=== PATIENT | female | born 1960 | race Caucasian/White ===

== ENCOUNTER 2020-09-30 06:51 | Day surgery (SDC) | payer OTHER ==
[2020-09-24 14:50] VITALS: BMI 22.1
[~2020-09-30 06:51] MED LIST: LACTATED RINGERS 1,000 ML IV SCH; LIDOCAINE 1% (10MG/ML) FOR IV START INTRADERMA PRN
[2020-09-30 07:14] VITALS: TEMP 97.8
[2020-09-30] MEDS ORDERED: LACTATED RINGERS 1,000 ML IV ONE (07:14)
[2020-09-30 07:21] LABS: Glucose,Whole Blood 308 mg/dL (75-99)
[2020-09-30] MEDS ORDERED: INSULIN ASPART (NovoLOG) 100 UNIT/ML VIAL SQ ONE ×2 (07:28→08:45)
[2020-09-30] MEDS ORDERED: fentaNYL (PF) 50 MCG/ML 2 ML AMP ONE (07:33)
[2020-09-30] MEDS ORDERED: PROPOFOL 10 MG/ML 20 ML VIAL IV ONE (07:33)
[2020-09-30] MEDS ORDERED: LIDOCAINE 1% INJ 10MG/ML (20 ML MDV) ONE (07:33)
[2020-09-30] MEDS ORDERED: MIDAZOLAM 2 MG/2 ML VIAL ONE (07:33)
--- NOTE | 2020-09-30 08:21 | P.PCN ---
Date of Procedure: 09/30/20 Description of Procedure: Brief history: Patient is a pleasant 60-year-old female presenting for outpatient esophagogastroduodenoscopy and colonoscopy for evaluation of GERD and change in bowel habits. The patient reports a long-standing history of reflux disease. Currently on omeprazole daily she reports symptoms which are well controlled. She reports her last colonoscopy was approximately 10 years ago. No family history of colon cancer reported. Procedure performed: Esophagogastroduodenoscopy with biopsy Colonoscopy with polypectomy Preoperative diagnosis: GERD, change in bowel habits, unintentional weight loss, patient reports last colonoscopy 10 years ago at 50 Anesthesia: [facility] Procedure: After informed consent was obtained from the patient was brought into the endoscopy unit and IV sedation was administered by anesthesia under continuous monitoring. Initially upper endoscopy was done. The Olympus GF 190 video endoscope was inserted into the mouth and esophagus intubated without any difficulty and was gradually advanced into the stomach and duodenum and car efully examined. The bulb and second part of the duodenum appeared normal, with biopsies taken to rule out celiac sprue. The scope was then withdrawn into the stomach adequately insufflated with air and upon careful examination the antrum and body, cardia and fundus appeared normal, except for some mild punctate erythema in the body suggestive of mild gastritis with biopsies taken. The scope was then withdrawn into the esophagus. The GE junction was located at 38 cm to the incisors. It appeared regular with no erythema erosions or ulcerations, with biopsies taken of the lower esophagus. Rest of the esophagus appeared normal. Patient tolerated the procedure well. At this time the patient continued to remain sedation. Initial digital rectal examination was normal. Olympus CF 190 video colonoscope was then inserted into the rectum and gradually advanced to the cecum without any difficulty. Careful examination was performed as the scope was gradually being withdrawn. The prep was excellent. The cecum, ascending colon, transverse colon, descending colon, sigmoid colon and rectum appeared normal, but was somewhat redundant. A diminutive 1-2 mm transverse colon polyp was removed with cold forcep polypectomy. Retroflexion was performed in the rectum and no lesions were noted, and low-grade internal hemorrhoids were seen. Patient tolerated the procedure well. Impression: 1. Mild gastritis. Biopsies of the duodenum, antrum and body and lower esophagus. 2. Diminutive transverse colon polyp removed with cold forcep polypectomy. Low-grade internal hemorrhoids. Recommendations: Findings of this examination were discussed with the patient as well as her family. Okay to resume diet. Okay to resume medication. Await pathology from biopsies and polypectomy. Recommend repeat colonoscopy in 7 years for colon polyp pending pathology from polypectomy.
[2020-09-30 08:28] VITALS: RESP 16
[2020-09-30 08:34] LABS: Glucose,Whole Blood 298 mg/dL (75-99)
[2020-09-30 08:47] VITALS: BP 115/74; PULSE 71
== END 2020-09-30 09:32 | disposition home or self-care (01) ==
LOC: ORWHC2ENDO 06:51
PROVIDERS: ATTEND Internal Medicine
DX: K21.9 Gastro-esophageal reflux disease without esophagitis (principal); R19.4 Change in bowel habit; K64.8 Other hemorrhoids; K29.80 Duodenitis without bleeding; K29.50 Unspecified chronic gastritis without bleeding; K20.0 Eosinophilic esophagitis; Z72.0 Tobacco use; Z90.710 Acquired absence of both cervix and uterus; Z98.890 Other specified postprocedural states; Z79.4 Long term (current) use of insulin; Z79.899 Other long term (current) drug therapy; Z88.5 Allergy status to narcotic agent; Z88.0 Allergy status to penicillin; Z91.09 Other allergy status, other than to drugs and biological substances
CPT/HCPCS: 88305; 45380; 43239; J2250; J2001; J3010; J2704

== ENCOUNTER 2020-10-01 13:05 | Inpatient (IN) | payer OTHER ==
[2020-10-01] MEDS ORDERED: SODIUM CHLORIDE 0.9% 1,000 ML IV ONE (13:10)
[2020-10-01] MEDS ORDERED: HEPARIN SODIUM 1,000 UN/ML (10ML VL) IV ONE ×2 (13:10→13:47)
[2020-10-01] MEDS ORDERED: ATORVASTATIN 80 MG TAB PO STA (13:12)
[2020-10-01] MEDS: ASPIRIN 81 MG PO STA ×2 (13:24→13:25)
--- NOTE | 2020-10-01 13:24 | ED ---
General Adult HPI - General Stated complaint: STEMI Time Seen by Provider: 10/01/20 13:05 Source: patient, RN notes reviewed, old records reviewed - History of Present Illness Initial comments: This is a 60-year-old female who presents emergency department with past medical history significant for diabetes. Patient called EMS because of difficulty breathing not feeling well. When EMS arrived she was diaphoretic very nauseated and felt like she was vomited. Patient denied chest pain at any time. When EMS did EKG patient appeared to have inferior TN in the colostomy over the radial at which point time we called a STEMI in the emergency department. Patient was given Zofran in route states she feels considerably better and he has no nausea at this time. Patient still has no chest pain. Patient denies any headache pa tient denies any numbness weakness. Patient denies any lightheadedness. - Related Data Home Medications Medication Instructions Recorded Confirmed DULoxetine HCL [Cymbalta] 120 mg PO DAILY 09/24/20 09/24/20 INSULIN LISPRO (humaLOG) [humaLOG] 0 units SQ ACHS PRN 09/24/20 09/24/20 Insulin Degludec [Tresiba] 10 units SQ HS 09/24/20 09/24/20 Levothyroxine Sodium 2 tab PO DAILY 09/24/20 09/24/20 Omeprazole 80 mg PO DAILY 09/24/20 09/24/20 Simvastatin [Zocor] 20 mg PO HS 09/24/20 09/24/20 Allergies Allergy/AdvReac Type Severity Reaction Status Date / Time adhesive tape Allergy Rash/Hives Verified 10/01/20 13:20 codeine Allergy "feel like Verified 10/01/20 13:20 I'm speed" Penicillins Allergy Rash/Hives Verified 10/01/20 13:20 Review of Systems ROS Statement: Those systems with pertinent positive or pertinent negative responses have been documented in the HPI. ROS Other: All systems not noted in ROS Statement are negative. Past Medical History Past Medical History: Diabetes Mellitus, GERD/Reflux, Hyperlipidemia, Thyroid Disorder Additional Past Medical History / Comment(s): wt loss 30# in less than a year History of Any Multi-Drug Resistant Organisms: None Reported Past Surgical History: Section, Hysterectomy Additional Past Surgical History / Comment(s): C/S x2, pilonidal cyst Past Anesthesia/Blood Transfusion Reactions: No Reported Reaction Smoking Status: Current every day smoker General Exam - General Exam Comments Initial Comments: GENERAL: Patient is well-developed and well-nourished. Patient is nontoxic and well- hydrated and is in mild distress. ENT: Neck is soft and supple. No significant lymphadenopathy is noted. Oropharynx is clear. Moist mucous membranes. Neck has full range of motion without eliciting any pain. EYES: The sclera were anicteric and conjunctiva were pink and moist. Extraocular movements were intact and pupils were equal round and reactive to light. Eyelids were unremarkable. PULMONARY: Unlabored respirations. Good breath sounds bilaterally. No audible rales rhonchi or wheezing was noted. CARDIOVASCULAR: There is a regular rate and rhythm without any murmurs gallops or rubs. ABDOMEN: Soft and nontender with normal bowel sounds. SKIN: Skin is clear with no lesions or rashes and otherwise unremarkable. NEUROLOGIC: Patient is alert and oriented x3. Cranial nerves II through XII are grossly intact. Motor and sensory are also intact. Normal speech, volume and content. Symmetrical smile. MUSCULOSKELETAL: Normal extremities with adequate strength and full range of motion. 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 Patient's EKG shows ST segment elevation in inferior leads II, III, and F aVF as well as precordial lateral leads V5 and V6. Patient was started on heparin bolus of 4 000 even though she just had to walk normal and his gastric biopsies patient had aspirin in route patient was given a liter bolus of fluid. Patient was also given Lipitor 80. The nurse practitioner for cardiology was in the room and she took the patient to Sql Data Analyst. Chest x-ray showed no acute abnormality. I spoke with Dr. Berkowitz he agreed to admit the patient admitted the patient I wrote admitting orders. Critical Care Time Critical Care Time: Yes Total Critical Care Time: 35 Disposition Clinical Impression: ST elevation myocardial infarction (STEMI) Disposition: ADMITTED IP TO THIS HOSP Referrals: Molly Wallace MD [Primary Care Provider] - 1-2 days Time of Disposition: 13:23
[2020-10-01] MEDS ORDERED: fentaNYL (PF) 50 MCG/ML 2 ML AMP IVP ONE (13:25)
[2020-10-01] MEDS: MIDAZOLAM 2 MG/2 ML VIAL IVP ONE ×2 (13:25→13:55)
--- NOTE | 2020-10-01 13:26 | XR ---
EXAMINATION TYPE: XR chest 1V portable DATE OF EXAM: 10/01/2020 COMPARISON: NONE HISTORY: Pain TECHNIQUE: Single frontal view of the chest is obtained. FINDINGS: There is no focal air space opacity, pleural effusion, or pneumothorax seen. The cardiac silhouette size is within normal limits. The osseous structures are intact. Coarsened interstitium IMPRESSION: Correlate for bronchitis. Early venous congestion felt less likely. Chronic interstitial lung disease in the differential diagnosis, however, no prior exams available for comparison.
[2020-10-01] MEDS ORDERED: fentaNYL (PF) 50 MCG/ML 2 ML AMP ONE (13:27)
[2020-10-01 13:28] LABS: Anisocytosis Slight; Basophils % (A) 0 %; Eosinophils # (A) 0.1 k/uL (0-0.7); Eosinophils % (A) 1 %; HCT 41.3 % (34.0-46.0); HGB 13.2 gm/dL (11.4-16.0); Lymphocytes # (A) 3.1 k/uL (1.0-4.8); Lymphocytes % (A) 36 %; MCH 25.9 pg (25.0-35.0); Mean Platelet Volume 9.7; Monocytes # (A) 0.5 k/uL (0-1.0); Monocytes % (A) 6 %; Neutrophils # (A) 4.7 k/uL (1.3-7.7); Neutrophils % (A) 55 %; Platelet Count 347 k/uL (150-450); RBC 5.11 m/uL (3.80-5.40); RDW 16.4 % (11.5-15.5); WBC 8.7 k/uL (3.8-10.6)
[2020-10-01] MEDS ORDERED: LIDOCAINE 1% INJ 10MG/ML (20 ML MDV) SQ ONE (13:28)
[2020-10-01] MEDS ORDERED: IV FLUID CONTINUATION 1,000 ML IV ONE (13:33)
[2020-10-01] MEDS: LIDOCAINE 2% SYG (PF) 100 MG/5 ML IV ONE ×2 (13:43→13:55)
[2020-10-01 13:45] LABS: ALT 24 U/L (4-34); AST 31 U/L (14-36); African American GFR (CKD) >90 (>60 ml/min/1.73 sqM); Albumin 3.8 g/dL (3.5-5.0); Alkaline Phosphatase 118 U/L (38-126); Anion Gap 11 mmol/L; Blood Urea Nitrogen 10 mg/dL (7-17); Calcium 9.5 mg/dL (8.4-10.2); Carbon Dioxide 16 mmol/L (22-30); Chloride 107 mmol/L (98-107); Glucose 277 mg/dL (74-99); Magnesium 1.5 mg/dL (1.6-2.3); Non-African American GFR(CKD) >90 (>60 ml/min/1.73 sqM); Potassium 4.1 mmol/L (3.5-5.1); Sodium 134 mmol/L (137-145); Total Bilirubin 0.5 mg/dL (0.2-1.3); Total Protein 6.3 g/dL (6.3-8.2)
[2020-10-01 13:46] LABS: Partial Thromboplastin Time 21.9 sec (22.0-30.0); Prothrombin Time 10.6 sec (9.0-12.0)
--- NOTE | 2020-10-01 13:52 | P.CARDCATH ---
Date of Procedure: 10/01/20 Preoperative Diagnosis: Inferior wall myocardial infarction Postoperative Diagnosis: Critical lesion involving the distal circumflex. Diffuse disease involving the LAD and also RCA Procedure(s) Performed: Left heart catheterization without left ventriculography Description of Procedure: HISTORY: This is a 60-year-old female with history of sci-iafwlex-ywtugxiiv diabetes had a colonoscopy yesterday and biopsy of the polyp. Patient is presented to the hospital this time with complaints of nausea vomiting and sweating. Did not have any chest pain. EKG however showed ST elevation in inferior leads. She is advised to have for diagnosis CONSENT:I have discussed the risks, benefits and alternative therapies for the above-mentioned procedure and for both sedation/analgesia as well as necessary blood product administration, if indicated, as they pertain to this patient. The patient has indicated understanding and acceptance of the risks and procedures discussed. PROCEDURE: Patient was brought to the lab in a fasting state. Patient was given some IV sedation. The right groin is infiltrated with lidocaine and right femoral artery was entered using Seldinger technique. A 6-Belgian catheter was left in place and selective coronary arteriography and left ventriculography was performed. Patient tolerated the procedure well. No immediate complications were noted and patient went on to have stent placement by Dr. MONTSERRAT Jones Conscious Sedation: Versed 1mg Fentanyl 50 g Duration 14minutes HEMODYNAMICS: The aortic pressure is 160/80. Left ventricular end-diastolic pressure was not measured SELECTIVE CORONARY ARTERIOGRAPHY: LEFT MAIN: Normal length and patent THE LEFT ANTERIOR DESCENDING CORONARY ARTERY: . This is a moderate caliber vessel with diffuse disease with multiple areas of about 70% stenosis THE LEFT CIRCUMFLEX AND IS CORONARY ARTERY: . This is a good caliber vessel giving rise to good-sized OM branch. The first OM branch has about 6070% proximal stenosis. The distal circumflex has a 95% stenosis THE RIGHT CORONARY ARTERY: . Moderate caliber vessel with a diffuse disease with areas of 40-50% stenosis LEFT VENTRICULOGRAPHY: Not performed FINAL IMPRESSION: . Critical lesion involving the distal circumflex. Moderate to severe disease involving the LAD and multiple areas PLAN: And placement of the circumflex. Patient may need intervention of LAD in the future PROGNOSIS: Fair successful therapy
[2020-10-01] MEDS ORDERED: TIROFIBAN 12.5MG-0.9% NS PMX 250 ML BAG IV ONE ×2 (13:53)
[2020-10-01] MEDS ORDERED: TIROFIBAN 12.5MG-250ML NS 250 ML IV ONE (13:53)
[2020-10-01] MEDS ORDERED: NITROGLYCERIN 1000MCG/10ML SYRINGE INTRACORON ONE (13:59)
[2020-10-01] MEDS ORDERED: CLOPIDOGREL 75 MG TAB ONE (14:05)
--- NOTE | 2020-10-01 14:07 | P.CRDCN ---
History of Present Illness History of present illness: HISTORY OF PRESENTING ILLNESS This is a pleasant 60-year-old female past medical history significant for type I diabetes mellitus, dyslipidemia and chronic nicotine dependence. She denies prior history of coronary artery disease and does not follow in the office with a monorail hooker. She started feeling sick approximately 30 minutes ago. She had an acute onset of nausea, vomiting and diaphoresis that started at home. She called EMS. On their arrival an EKG showed ST elevations in the inferior leads and is in bigeminy. Repeat EKG in ER again showerd ST elevations in the inferior leads with persistent bigeminy. The ST elevations are difficult to discern given the frequent PVC's. There is no old for comparison. Chest xray revealed early venous congestion possible vs bronchitis with underlying interstitial lung disease. Laboratory data reviewed, WBC 8.7, hgb 13.2, platele ts 347, sodium 134, potassium 4.1, creatinine 0.61 and magnesium 1.5. Current daily cardiac medications include simvastatin 20 mg daily. REVIEW OF SYSTEMS At the time of my exam: CONSTITUTIONAL: Denies fever or chills. CARDIOVASCULAR: Denies chest pain, shortness of breath, orthopnea, PND or palpitations. RESPIRATORY: Denies cough. GASTROINTESTINAL: Complains of nausea and vomiting. Denies abdominal pain, diarrhea or constipation. MUSCULOSKELETAL: Denies myalgias. NEUROLOGIC: Denies numbness, tingling, headacbe or weakness. ENDOCRINE: Denies fatigue, weight change, polydipsia or polyurina. GENITOURINARY: Denies burning, hematuria or urgency with micturation. HEMATOLOGIC: Denies history of anemia or bleeding. PHYSICAL EXAMINATION Blood pressure 124/64 heart rate 62 afebrile and maintaining oxygen saturation on nasal cannula. CONSTITUTIONAL: Diaphoretic. HEENT: Head is normocephalic. Pupils are equal, round. Sclerae anicteric. Mucous membranes of the mouth are moist. No JVD. No carotid bruit. CHEST EXAMINATION: Lungs are clear to auscultation. No chest wall tenderness is noted on palpation or with deep breathing. HEART EXAMINATION: Regular rate and rhythm. S1, S2 heard. No murmurs, gallops or rub. ABDOMEN: Soft, nontender. Positive bowel sounds. EXTREMITIES: 2+ peripheral pulses, no lower extremity edema and no calf tenderness. NEUROLOGIC EXAMINATION: Patient is awake, alert and oriented x3. ASSESSMENT Inferior wall STEMI Bigeminy Dyslipidemia Diabetes mellitus Chronic nicotine dependence Recent colonoscopy secondary to unintentional weight loss PLAN Pt going to microbiological laboratory technician for [facility]. I have discussed the risks, benefits and alternative therapies for the above- mentioned procedure and for both sedation/analgesia as well as necessary blood product administration, if indicated, as they pertain to this patient. The patient has indicated understanding and acceptance of the risks and procedures discussed. Further recommendations to follow based on clinical course. Thank you kindly for this consultation. Nurse Practitioner note has been reviewed, I agree with a documented findings and plan of care. Patient was seen and examined. Past Medical History Past Medical History: Diabetes Mellitus, GERD/Reflux, Hyperlipidemia, Thyroid Disorder Additional Past Medical History / Comment(s): wt loss 30# in less than a year History of Any Multi-Drug Resistant Organisms: None Reported Past Surgical History: Section, Hysterectomy Additional Past Surgical History / Comment(s): C/S x2, pilonidal cyst Past Anesthesia/Blood Transfusion Reactions: No Reported Reaction Smoking Status: Current every day smoker Medications and Allergies Home Medications Medication Instructions Recorded Confirmed Type DULoxetine HCL [Cymbalta] 120 mg PO DAILY 09/24/20 09/24/20 History INSULIN LISPRO (humaLOG) [humaLOG] 0 units SQ ACHS PRN 09/24/20 09/24/20 History Insulin Degludec [Tresiba] 10 units SQ HS 09/24/20 09/24/20 History Levothyroxine Sodium 2 tab PO DAILY 09/24/20 09/24/20 History Omeprazole 80 mg PO DAILY 09/24/20 09/24/20 History Simvastatin [Zocor] 20 mg PO HS 09/24/20 09/24/20 History Allergies Allergy/AdvReac Type Severity Reaction Status Date / Time adhesive tape Allergy Rash/Hives Verified 10/01/20 13:20 codeine Allergy "feel like Verified 10/01/20 13:20 I'm speed" Penicillins Allergy Rash/Hives Verified 10/01/20 13:20 Physical Exam Vitals: Vital Signs Temp Pulse Pulse Resp BP Pulse Ox 10/01/20 13:07 97.3 F L 62 22 124/64 100 10/01/20 13:05 64 Intake and Output 09/30/20 10/01/20 10/01/20 22:59 06:59 14:59 Other: Weight 56.699 kg Results Current Medications Generic Name Dose Route Start Last Admin Trade Name Freq PRN Reason Stop Dose Admin Sodium Chloride 1,000 mls @ 999 mls/hr 10/01/20 13:10 Saline 0.9% IV 10/01/20 14:10 .Q1H1M ONE Intake and Output 09/30/20 10/01/20 10/01/20 22:59 06:59 14:59 Other: Weight 56.699 kg Patient Weight 10/02/20 06:59 Weight 56.699 kg
[2020-10-01] MEDS ORDERED: MAGNESIUM SULFATE-D5W PMX 1 GM in DEXTROSE/WATER 1 100ML.BAG IVPB STA (14:10)
[2020-10-01] MEDS ORDERED: CLOPIDOGREL 75 MG TAB PO ONE (14:10)
[2020-10-01] MEDS ORDERED: METOPROLOL TARTRATE 25 MG TAB PO STA (14:10)
[2020-10-01] MEDS ORDERED: IOPAMIDOL-370 100ML BTL INJ ONE ×2 (14:14→14:15)
[2020-10-01] MEDS ORDERED: METOPROLOL TARTRATE 50 MG TAB PO ONE (14:16)
[2020-10-01] MEDS ORDERED: NICOTINE 21MG/24HR PATCH TRANSDERM SCH (14:30)
[2020-10-01 14:53] LABS: Glucose,Whole Blood 261 mg/dL (75-99)
[2020-10-01] MEDS: INSULIN ASPART (NovoLOG) 100 UNIT/ML VIAL SQ SCH ×2 (15:53→21:26)
[2020-10-01] MEDS: MAGNESIUM SULFATE-D5W PMX 1 GM in DEXTROSE/WATER 1 100ML.BAG IVPB SCH ×2 (15:53→16:32)
[2020-10-01] MEDS: SODIUM CHLORIDE 0.9% 1,000 ML IV SCH (16:31)
[2020-10-01 16:56] LABS: Glucose,Whole Blood 260 mg/dL (75-99)
--- NOTE | 2020-10-01 19:01 | PTCA ---
PERCUTANEOUSTRANS CORORONARY ANGIOGRAPHY PTCA REPORT DATE OF SERVICE: 10/01/2020 PROCEDURE: PTCA and stenting of mid circumflex marginal coronary artery performed in the setting of an acute inferior ST-elevation ND with reperfusion accomplished within 45 minutes. PERFORMED BY: Dr. Dwaine Jones. Moderate conscious sedation time was 16 minutes. CLINICAL INFORMATION: Sanjana Farley is a 60-year-old lady with history of smoking, hypertension, diabetes, hyperlipidemia, came into the hospital with chest pain, inferior ST elevation and was seen by Dr. Serna who performed a cardiac cath from right femoral approach. Study revealed diffuse disease in all 3 vessels with a 99% mid circumflex stenosis, which was the culprit lesion. I performed LICENSED MIDWIFE in the same setting. LICENSED MIDWIFE PROCEDURE DETAILS: JL4 standard guide catheter of 6-Uzbek caliber was used to cannulate the left coronary artery. A run-through wire was used to cross the lesion. A 2.25 caliber, 12 mm Trek balloon was used to pre-dilate the lesion. An 8 mm long, 2.5 caliber Xience stent was deployed at 11 atmospheres. Patient did have mild chest pain, some runs of ventricular tachycardia. She had complete relief of chest pain and normalization of EKG. Excellent angiographic result was achieved without complication. The patient received heparin intravenously of about total of 5000 units. 4000 units were actually given in the ER and a 1000 units here in the cardiac cath rn. ACT was about 290. She was also given an Aggrastat drip as per protocol. The sheath was taken out and Angio-Seal device used to secure hemostasis. Results and the findings were discussed in detail with the patient's daughter and patient's . She was advised to quit smoking and work with risk factor modification. Patient was stable hemodynamically, was sent to the ICU in a stable condition. Excellent angiographic result was achieved without complication. MMODL / IJN: [id number] /
[2020-10-01 20:57] LABS: Glucose,Whole Blood 70 mg/dL (75-99)
[2020-10-01 20:59] LABS: Glucose,Whole Blood 71 mg/dL (75-99)
[2020-10-01] MEDS ORDERED: INSULIN DETEMIR (LEVEMIR) 100 UNIT/ML SYR SQ SCH (21:00)
[2020-10-01] MEDS: NICOTINE 21MG/24HR PATCH TRANSDERM SCH (21:53)
[2020-10-01] MEDS: LOSARTAN 25 MG TAB PO SCH (22:06)
[2020-10-01] MEDS: METOPROLOL TARTRATE 25 MG TAB PO SCH (22:07)
[2020-10-02 03:41] LABS: Hemoglobin A1C 9.6 % (4.0-6.0)
[2020-10-02 04:57] LABS: African American GFR (CKD) >90 (>60 ml/min/1.73 sqM); Anion Gap 5 mmol/L; Blood Urea Nitrogen 7 mg/dL (7-17); Calcium 8.4 mg/dL (8.4-10.2); Carbon Dioxide 23 mmol/L (22-30); Chloride 107 mmol/L (98-107); Glucose 283 mg/dL (74-99); Non-African American GFR(CKD) >90 (>60 ml/min/1.73 sqM); Potassium 5.2 mmol/L (3.5-5.1); Sodium 135 mmol/L (137-145)
[2020-10-02 05:39] LABS: Anisocytosis Slight; HCT 35.8 % (34.0-46.0); HGB 11.3 gm/dL (11.4-16.0); Hypochromasia Slight; MCH 26.2 pg (25.0-35.0); MCHC 31.5 g/dL (31.0-37.0); MCV 83.2 fL (80.0-100.0); Mean Platelet Volume 9.9; Platelet Count 328 k/uL (150-450); RDW 16.9 % (11.5-15.5); WBC 11.2 k/uL (3.8-10.6)
[2020-10-02 06:01] LABS: Band Neutrophils % 2 %; Eosinophils # (M) 0.11 k/uL (0-0.7); Lymphocytes # (M) 3.02 k/uL (1.0-4.8); Neutrophils % (M) 62 %; Nucleated Red Blood Cells 0 /100 WBC (0-0); Total Cells Counted 100
[2020-10-02 06:02] LABS: Anisocytosis (M) Present
[2020-10-02] MEDS: SODIUM CHLORIDE 0.9% 1,000 ML IV SCH ×2 (06:05→17:11)
[2020-10-02 06:54] LABS: Glucose,Whole Blood 327 mg/dL (75-99)
[2020-10-02] MEDS: PANTOPRAZOLE 40 MG TABLET PO SCH (07:09)
[2020-10-02] MEDS: LEVOTHYROXINE 112 MCG TAB PO SCH (07:09)
[2020-10-02] MEDS: INSULIN ASPART (NovoLOG) 100 UNIT/ML VIAL SQ SCH ×4 (07:09→21:26)
--- NOTE | 2020-10-02 07:45 | ECHOF ---
Referral Reason:stemi, going to ICU MEASUREMENTS -------- HEIGHT: 160.0 cm WEIGHT: 56.7 kg BP: 124/64 IVSd: 0.8 cm (0.6 - 1.1) LVIDd: 3.8 cm (3.9 - 5.3) LVPWd: 0.9 cm (0.6 - 1.1) IVSs: 1.0 cm LVIDs: 2.6 cm LVPWs: 1.4 cm LAESV Index (A-L): 20.11 ml/m Ao Diam: 2.1 cm (2.0 - 3.7) AV Cusp: 1.4 cm (1.5 - 2.6) MV EXCURSION: 18.505 mm (> 18.000) MV EF SLOPE: 123 mm/s (70 - 150) EPSS: 0.3 cm MV E Darryl: 0.65 m/s MV DecT: 173 ms MV A Darryl: 0.83 m/s MV E/A Ratio: 0.79 FINDINGS -------- Sinus rhythm. This was a technically difficult study with suboptimal views. Patient is post cardiac catheterizati on and cannot be in left lateral position. The left ventricular size is normal. Left ventricular wall thickness is normal. Overall left vent ricular systolic function is moderate-severely impaired with, an EF between 30 - 35 %. Mid anterior LV wall motion is hypokinetic. Mid lateral LV wall motion is hypokinetic. Mid posterior LV wal l motion is hypokinetic. Mid inferior LV wall motion is hypokinetic. Mid inferoseptal LV wall m otion is hypokinetic. Mid anteroseptal LV wall motion is hypokinetic. Apical anterior LV wall m otion is hypokinetic. Apical lateral LV wall motion is hypokinetic. Apical inferior LV wall mot ion is hypokinetic. Apical septum LV wall motion is hypokinetic. The right ventricle is normal in size. Normal LA size by volume 22+/-6 ml/m2. The right atrial size is normal. 5.0mg of Lumason was utilized for enhancement of images Interatrial and interventricular septum intact. The aortic valve is trileaflet, and appears structurally normal. No aortic stenosis or regurgitation. The mitral valve is normal. Mild mitral regurgitation is present. The tricuspid valve appears structurally normal. Mild tricuspid regurgitation present. Right vent ricular systolic pressure is normal at < 35 mmHg. The right ventricular systolic pressure, as measu red by Doppler, is {RVSP}. The pulmonic valve was not well visualized. The aortic root size is normal. IVC Not well visulized. There is no pericardial effusion. CONCLUSIONS -------- 1. This was a technically difficult study with suboptimal views. 2. Left ventricular wall thickness is normal. 3. Overall left ventricular systolic function is moderate-severely impaired with, an EF between 30 - 35 %. 4. Mid anterior LV wall motion is hypokinetic. 5. Mid lateral LV wall motion is hypokinetic. 6. Mid posterior LV wall motion is hypokinetic. 7. Mid inferior LV wall motion is hypokinetic. 8. Mid inferoseptal LV wall motion is hypokinetic. 9. Mid anteroseptal LV wall motion is hypokinetic. 10. Apical anterior LV wall motion is hypokinetic. 11. Apical lateral LV wall motion is hypokinetic. 12. Apical inferior LV wall motion is hypokinetic. 13. Apical septum LV wall motion is hypokinetic. 14. Normal LA size by volume 22+/-6 ml/m2. 15. The aortic valve is trileaflet, and appears structurally normal. No aortic stenosis or regurgitat ion. 16. Mild mitral regurgitation is present. 17. Mild tricuspid regurgitation present. ENGRAVER TIRE MOLD: Edita Saravia RDCS
[2020-10-02] MEDS ORDERED: ASPIRIN 325 MG TAB PO SCH (09:00)
[2020-10-02] MEDS: DULoxetine HCL 60 MG CAPSULE.DR PO SCH (09:23)
[2020-10-02] MEDS: CLOPIDOGREL 75 MG TAB PO SCH (09:24)
[2020-10-02] MEDS: ATORVASTATIN 80 MG TAB PO SCH (09:24)
[2020-10-02] MEDS: METOPROLOL TARTRATE 25 MG TAB PO SCH (09:25)
[2020-10-02 10:09] LABS: Chol/HDL Ratio 3.69; Cholesterol 144 mg/dL (0-200); LDL Cholesterol,Calculated 77.4 mg/dL (0.0-131.0)
[2020-10-02 10:49] LABS: Glucose,Whole Blood 173 mg/dL (75-99)
[2020-10-02 11:17] VITALS: BMI 23.8
[2020-10-02 11:36] LABS: Glucose,Whole Blood 134 mg/dL (75-99)
[2020-10-02] MEDS: LOSARTAN 25 MG TAB PO SCH (11:36)
[2020-10-02 16:38] LABS: Glucose,Whole Blood 245 mg/dL (75-99)
--- NOTE | 2020-10-02 17:33 | P.PN ---
Subjective Progress Note Date: 10/02/20 This is a 60-year-old female who was admitted with complaints of nausea or sweating and shortness of breath. She was found to have acute inferior wall TN. Had a cardiac cath and stent placement of circumflex. Patient also has diffuse disease in the left LAD. Patient seemed to be doing quite well. Denies any chest pain, shortness of breath, dizziness or syncope. No Sigmund arrhythmias. Her groin is soft without any hematoma. Echo Cardigan showed severe LV dysfunction with ejection fraction 35%. Besides inferior wall hypokinesia, and there seemed to be hypokinesia of the anterior wall and segments. Patient did not have any ischemic changes on the EKG in the anterior wall. Any have clinically patient doesn't have signs of CHF. We'll continue current medical therapy including blockers, MARCUS inhibitor and dual antiplatelet agent. Increase activity as tolerated. Possible transfer to telemetry unit Within next 24 hours Objective - Vital Signs Vital signs: Vital Signs Temp 97.8 F 10/02/20 12:00 Pulse 70 10/02/20 17:00 Resp 24 10/02/20 17:00 BP 119/56 10/02/20 17:00 Pulse Ox 98 10/02/20 17:00 Intake & Output 10/01/20 10/02/20 10/02/20 18:59 06:59 18:59 Intake Total 1035 650.40 Output Total 530 900 800 Balance 505 -249.60 -800 Weight 60.4 kg 61.2 kg 61.2 kg Intake: IV 835 650.40 0.9 @75 mls/hr 300 600 Tirofiban 12.5MG-250Ml Ns 50.40 250 ml @ 0 mls/hr IV . [facility] Rx#: [id number] Intake, IV Titration 200 Amount Magnesium Sulfate-D5w Pmx 100 1 gm In Dextrose/Water 1 100ml.bag @ 100 mls/hr IVPB ONCE STA Rx#: [id number] Magnesium Sulfate-D5w Pmx 100 1 gm In Dextrose/Water 1 100ml.bag @ 100 mls/hr IVPB Q1H [facility] Rx#: [id number] Output: Urine 530 900 800 Other: Voiding Method Bedpan Bedside Commode Bedside Commode # Voids 0 0 - Exam GENERAL EXAM: Patient is alert and oriented and doesn't appear to be in any acute distress HEENT: Normocephalic. Normal reaction of pupils, equal size, normal range of extraocular motion. No erythema or exudates in the throat. NECK: No masses, no nuchal rigidity. CHEST: No chest wall deformity. LUNGS: Equal air entry with no crackles or wheeze. HEART: S1 and S2 normal with no audible mumurs or gallops. Regular rhythm, femorals equal on both sides.. ABDOMEN: No hepatosplenomegaly, normal bowel sounds, no guarding or rigidity. SKIN: No rashes CENTRAL NERVOUS SYSTEM: No focal deficits. EXTREMITIES: No cyanosis, clubbing or edema. RIGHT GROIN: Soft without any hematoma - Labs CBC & Chem 7: 10/02/20 03:57 10/02/20 03:57 Labs: Abnormal Lab Results - Last 24 Hours (Table) 10/01/20 10/01/20 10/01/20 Range/Units 13:13 13:13 20:56 WBC (3.8-10.6) k/uL Hgb (11.4-16.0) gm/dL RDW (11.5-15.5) % Sodium (137-145) mmol/L Potassium (3.5-5.1) mmol/L Glucose (74-99) mg/dL POC Glucose (mg/dL) 70 L (75-99) mg/dL Hemoglobin A1c 9.6 H (4.0-6.0) % HDL Cholesterol (40.0-60.0) mg/dL TSH 0.095 L (0.465-4.680) mIU/L 10/01/20 10/02/20 10/02/20 Range/Units 20:58 03:57 03:57 WBC 11.2 H (3.8-10.6) k/uL Hgb 11.3 L (11.4-16.0) gm/dL RDW 16.9 H (11.5-15.5) % Sodium 135 L (137-145) mmol/L Potassium 5.2 H (3.5-5.1) mmol/L Glucose 283 H (74-99) mg/dL POC Glucose (mg/dL) 71 L (75-99) mg/dL Hemoglobin A1c (4.0-6.0) % HDL Cholesterol 39.0 L (40.0-60.0) mg/dL TSH (0.465-4.680) mIU/L 10/02/20 10/02/20 10/02/20 Range/Units 06:53 10:47 11:35 WBC (3.8-10.6) k/uL Hgb (11.4-16.0) gm/dL RDW (11.5-15.5) % Sodium (137-145) mmol/L Potassium (3.5-5.1) mmol/L Glucose (74-99) mg/dL POC Glucose (mg/dL) 327 H 173 H 134 H (75-99) mg/dL Hemoglobin A1c (4.0-6.0) % HDL Cholesterol (40.0-60.0) mg/dL TSH (0.465-4.680) mIU/L 10/02/20 Range/Units 16:36 WBC (3.8-10.6) k/uL Hgb (11.4-16.0) gm/dL RDW (11.5-15.5) % Sodium (137-145) mmol/L Potassium (3.5-5.1) mmol/L Glucose (74-99) mg/dL POC Glucose (mg/dL) 245 H (75-99) mg/dL Hemoglobin A1c (4.0-6.0) % HDL Cholesterol (40.0-60.0) mg/dL TSH (0.465-4.680) mIU/L Assessment and Plan (1) ST elevation myocardial infarction (STEMI) Current Visit: Yes Status: Acute Code(s): I21.3 - ST ELEVATION (STEMI) MYOCARDIAL INFARCTION OF [facility] SITE SNOMED Code(s): 18348451 (2) Non-insulin dependent diabetes mellitus Current Visit: Yes Status: Acute Code(s): LHD2634 - SNOMED Code(s): 70405343 (3) Hyperlipidemia Current Visit: Yes Status: Acute Code(s): E78.5 - HYPERLIPIDEMIA, UNSPECIFIED SNOMED Code(s): 82033927 (4) Ischemic cardiomyopathy Current Visit: Yes Status: Acute Code(s): I25.5 - ISCHEMIC CARDIOMYOPATHY SNOMED Code(s): 770368089 Plan: Continue current medical therapy including beta blockers, MARCUS inhibitor and li pid-lowering agent antiplatelet agent. Increase activity as tolerated. Patient may be constricted for possible intervention in the LAD distribution the near future
--- NOTE | 2020-10-02 19:05 | P.HPIM ---
History of Present Illness H&P Date: 10/01/20 Sanjana Farley, is a 60 year old male who presented to [facility] emergency room with a chief complaint of nausea and shortness of breath, patient called EMS, EKG done by EMS revealed evidence of acute ST elevation myocardial infarction in the inferior leads, a STEMI alert was called and patient was brought into emergency room and taken directly to the label pinker, patient underwent angioplasty and stent placement of the mid circumflex coronary artery she was admitted to intensive care unit post procedure for further evaluation and treatment patient was started on IV heparin He was evaluated in the emergency room vital examination on presentation revealed a temperature of 97.3 pulse 62 respiration 20 blood pressure 124/64 pulse ox 100% on room air Laboratory data reveals a white blood count of 8.7 hemoglobin 13.2 platelet count 347 glucose 277 sodium 134 potassium 4.1 BUN 10 creatinine 0.61 troponin level 0.049 TSH was 0.095 Testing in the emergency room revealed chest x-ray revealed evidence of early venous congestion versus acute bronchitis Past medical history is significant for insulin-dependent diabetes type 1 and hyperthyroidism Past Medical History Past Medical History: Diabetes Mellitus, GERD/Reflux, Hyperlipidemia, Myocardial Infarction (AR), Thyroid Disorder Additional Past Medical History / Comment(s): wt loss 30# in less than a year Last Myocardial Infarction Date:: 10/01/20 History of Any Multi-Drug Resistant Organisms: None Reported Past Surgical History: Section, Heart Catheterization With Stent, Hyst erectomy Additional Past Surgical History / Comment(s): C/S x2, pilonidal cyst. 10/01/20 heart stent placed to distal CIRC Past Anesthesia/Blood Transfusion Reactions: No Reported Reaction Date of Last Stent Placement:: 10/01/20 Past Psychological History: No Psychological Hx Reported Smoking Status: Current every day smoker Past Alcohol Use History: None Reported Additional Past Alcohol Use History / Comment(s): smoker for 45 years 1 ppd Past Drug Use History: None Reported Medications and Allergies Home Medications Medication Instructions Recorded Confirmed Type DULoxetine HCL [Cymbalta] 120 mg PO DAILY 09/24/20 10/01/20 History INSULIN LISPRO (humaLOG) [humaLOG] See Protocol SQ ACHS PRN 09/24/20 10/01/20 History Insulin Degludec [Tresiba] 10 units SQ HS 09/24/20 10/01/20 History Levothyroxine Sodium 224 mcg PO DAILY 09/24/20 10/01/20 History Omeprazole 80 mg PO DAILY 09/24/20 10/01/20 History Simvastatin [Zocor] 20 mg PO HS 09/24/20 10/01/20 History Allergies Allergy/AdvReac Type Severity Reaction Status Date / Time adhesive tape Allergy Rash/Hives Verified 10/01/20 16:02 codeine Allergy "feel like Verified 10/01/20 16:02 I'm speed" Penicillins Allergy Rash/Hives Verified 10/01/20 16:02 Physical Exam Vitals: Vital Signs Temp Pulse Pulse Pulse Resp BP BP 10/01/20 15:15 73 19 126/89 10/01/20 15:00 74 25 H 128/67 10/01/20 14:45 97.9 F 72 72 12 133/74 10/01/20 13:07 97.3 F L 62 22 124/64 10/01/20 13:05 64 Pulse Ox 10/01/20 15:15 100 10/01/20 15:00 100 10/01/20 14:45 100 10/01/20 13:07 100 10/01/20 13:05 Intake and Output 10/01/20 10/01/20 10/01/20 06:59 14:59 22:59 Intake Total 535 175 Output Total 230 Balance 535 -55 Intake: IV 535 75 Sodium Chloride 0.9% 1, 75 000 ml @ 999 mls/hr IV . Q1H1M ONE Rx#:[id number] Intake, IV Titration 100 Amount Magnesium Sulfate-D5w Pmx 100 1 gm In Dextrose/Water 1 100ml.bag @ 100 mls/hr IVPB ONCE STA Rx#: [id number] Output: Urine 230 Other: Weight 56.699 kg 60.4 kg In general patient is alert and oriented ?-3 in no distress HEENT head normocephalic and atraumatic Neck is supple no JVD no goiter no lymphadenopathy no carotid bruit Chest examination is clear to auscultation no crackles no wheezing Cardiac exam reveals regular heart sounds S1 and S2 no gallops no murmurs Abdomen is soft nontender no organomegaly with normal bowel sounds Extremity exam reveals no edema no cyanosis or clubbing Neurological examination reveals no gross focal deficits Results CBC & Chem 7: 10/02/20 03:57 10/02/20 03:57 Labs: Abnormal Lab Results - Last 24 Hours (Table) 10/01/20 10/01/20 10/01/20 Range/Units 13:13 13:13 13:13 RDW 16.4 H (11.5-15.5) % APTT 21.9 L (22.0-30.0) sec Sodium 134 L (137-145) mmol/L Carbon Dioxide 16 L (22-30) mmol/L Glucose 277 H (74-99) mg/dL POC Glucose (mg/dL) (75-99) mg/dL Magnesium 1.5 L (1.6-2.3) mg/dL Troponin I (0.000-0.034) ng/mL 10/01/20 10/01/20 Range/Units 13:13 14:52 RDW (11.5-15.5) % APTT (22.0-30.0) sec Sodium (137-145) mmol/L Carbon Dioxide (22-30) mmol/L Glucose (74-99) mg/dL POC Glucose (mg/dL) 261 H (75-99) mg/dL Magnesium (1.6-2.3) mg/dL Troponin I 0.049 H* (0.000-0.034) ng/mL Thrombosis Risk Factor Assmnt - Choose All That Apply Any of the Below Risk Factors Present?: Yes Each Factor Represents 1 point: Age 41-60 years, Medical pt on bed rest Other Risk Factors: No Other congenital or acquired thrombophilia - If yes, enter type in comment: No Thrombosis Risk Factor Assessment Total Risk Factor Score: 2 Thrombosis Risk Factor Assessment Level: Low Risk Assessment and Plan Plan: Acute inferior ST elevation myocardial infarction Underlying history of diabetes mellitus type 1 Underlying history of hyperthyroidism patient is maintained on Synthroid Underlying history of hyperlipidemia maintained on Zocor Underlying history of gastroesophageal reflux disease At this time patient is admitted to intensive care unit She underwent angioplasty and stent placement of the circumflex artery Home medications reviewed and reordered We'll check TSH Will follow in a.m.
--- NOTE | 2020-10-02 19:08 | P.PN ---
Subjective Progress Note Date: 10/02/20 Sanjana Farley, is a 60 year old male who presented to [facility] emergency room with a chief complaint of nausea and shortness of breath, patient called EMS, EKG done by EMS revealed evidence of acute ST elevation myocardial infarction in the inferior leads, a STEMI alert was called and patient was brought into emergency room and taken directly to the lab technician, patient underwent angioplasty and stent placement of the mid circumflex coronary artery she was admitted to intensive care unit post procedure for further evaluation and treatment patient was started on IV heparin He was evaluated in the emergency room vital examination on presentation revealed a temperature of 97.3 pulse 62 respiration 20 blood pressure 124/64 pulse ox 100% on room air Laboratory data reveals a white blood count of 8.7 hemoglobin 13.2 platelet count 347 glucose 277 sodium 134 potassium 4.1 BUN 10 creatinine 0.61 troponin level 0.049 TSH was 0.095 Testing in the emergency room revealed chest x-ray revealed evidence of early venous congestion versus acute bronchitis Past medical history is significant for insulin-dependent diabetes type 1 , history of hyperlipidemia and hyperthyroidism On 10/02/2020 patient was seen and examined in the ICU she is alert and oriented 3 in no apparent distress there is no fever or chills no headache or dizziness no chest pain no shortness of breath no cough no nausea or vomiting no abdominal pain no diarrhea no burning with urination no frequency or urgency and no hematuria Objective - Vital Signs Vital signs: Vital Signs Temp 97.8 F 10/02/20 12:00 Pulse 78 10/02/20 18:00 Resp 15 10/02/20 18:00 BP 111/61 10/02/20 18:00 Pulse Ox 97 10/02/20 18:00 Intake & Output 10/01/20 10/02/20 10/02/20 18:59 06:59 18:59 Intake Total 1035 650.40 Output Total 530 900 800 Balance 505 -249.60 -800 Weight 60.4 kg 61.2 kg 61.2 kg Intake: IV 835 650.40 0.9 @75 mls/hr 300 600 Tirofiban 12.5MG-250Ml Ns 50.40 250 ml @ 0 mls/hr IV . [facility] Rx#: [id number] Intake, IV Titration 200 Amount Magnesium Sulfate-D5w Pmx 100 1 gm In Dextrose/Water 1 100ml.bag @ 100 mls/hr IVPB ONCE STA Rx#: [id number] Magnesium Sulfate-D5w Pmx 100 1 gm In Dextrose/Water 1 100ml.bag @ 100 mls/hr IVPB Q1H [facility] Rx#: [id number] Output: Urine 530 900 800 Other: Voiding Method Bedpan Bedside Commode Bedside Commode # Voids 0 1 - Exam In general patient is alert and oriented ?-3 in no distress HEENT head normocephalic and atraumatic Neck is supple no JVD no goiter no lymphadenopathy no carotid bruit Chest examination is clear to auscultation no crackles no wheezing Cardiac exam reveals regular heart sounds S1 and S2 no gallops no murmurs Abdomen is soft nontender no organomegaly with normal bowel sounds Extremity exam reveals no edema no cyanosis or clubbing Neurological examination reveals no gross focal deficits - Labs CBC & Chem 7: 10/02/20 03:57 10/02/20 03:57 Labs: Abnormal Lab Results - Last 24 Hours (Table) 10/01/20 10/01/20 10/01/20 Range/Units 13:13 20:56 20:58 WBC (3.8-10.6) k/uL Hgb (11.4-16.0) gm/dL RDW (11.5-15.5) % Sodium (137-145) mmol/L Potassium (3.5-5.1) mmol/L Glucose (74-99) mg/dL POC Glucose (mg/dL) 70 L 71 L (75-99) mg/dL Hemoglobin A1c 9.6 H (4.0-6.0) % HDL Cholesterol (40.0-60.0) mg/dL 10/02/20 10/02/20 10/02/20 Range/Units 03:57 03:57 06:53 WBC 11.2 H (3.8-10.6) k/uL Hgb 11.3 L (11.4-16.0) gm/dL RDW 16.9 H (11.5-15.5) % Sodium 135 L (137-145) mmol/L Potassium 5.2 H (3.5-5.1) mmol/L Glucose 283 H (74-99) mg/dL POC Glucose (mg/dL) 327 H (75-99) mg/dL Hemoglobin A1c (4.0-6.0) % HDL Cholesterol 39.0 L (40.0-60.0) mg/dL 10/02/20 10/02/20 10/02/20 Range/Units 10:47 11:35 16:36 WBC (3.8-10.6) k/uL Hgb (11.4-16.0) gm/dL RDW (11.5-15.5) % Sodium (137-145) mmol/L Potassium (3.5-5.1) mmol/L Glucose (74-99) mg/dL POC Glucose (mg/dL) 173 H 134 H 245 H (75-99) mg/dL Hemoglobin A1c (4.0-6.0) % HDL Cholesterol (40.0-60.0) mg/dL Assessment and Plan Plan: Acute inferior ST elevation myocardial infarction Underlying history of diabetes mellitus type 1 Underlying history of hyperthyroidism patient is maintained on Synthroid Underlying history of hyperlipidemia maintained on Zocor Underlying history of gastroesophageal reflux disease At this time patient is admitted to intensive care unit She underwent angioplasty and stent placement of the circumflex artery Home medications reviewed and reordered We'll check TSH Will follow in a.m.
[2020-10-02 20:39] LABS: Glucose,Whole Blood 296 mg/dL (75-99)
[2020-10-02] MEDS: NICOTINE 21MG/24HR PATCH TRANSDERM SCH (21:15)
[2020-10-02] MEDS: METOPROLOL TARTRATE 12.5 MG TAB PO SCH (21:26)
[2020-10-03 04:36] LABS: Anisocytosis Slight; Basophils % (A) 1 %; Eosinophils # (A) 0.2 k/uL (0-0.7); Eosinophils % (A) 2 %; HCT 33.3 % (34.0-46.0); HGB 10.5 gm/dL (11.4-16.0); Hypochromasia Slight; Lymphocytes # (A) 3.3 k/uL (1.0-4.8); Lymphocytes % (A) 39 %; MCHC 31.5 g/dL (31.0-37.0); MCV 82.6 fL (80.0-100.0); Mean Platelet Volume 8.1; Monocytes # (A) 0.6 k/uL (0-1.0); Monocytes % (A) 7 %; Neutrophils # (A) 4.3 k/uL (1.3-7.7); Neutrophils % (A) 50 %; Platelet Count 259 k/uL (150-450); RBC 4.03 m/uL (3.80-5.40); RDW 16.7 % (11.5-15.5); WBC 8.6 k/uL (3.8-10.6)
[2020-10-03 04:47] LABS: ALT 28 U/L (4-34); AST 52 U/L (14-36); African American GFR (CKD) >90 (>60 ml/min/1.73 sqM); Albumin 2.8 g/dL (3.5-5.0); Alkaline Phosphatase 92 U/L (38-126); Anion Gap 5 mmol/L; Blood Urea Nitrogen 11 mg/dL (7-17); Calcium 8.5 mg/dL (8.4-10.2); Carbon Dioxide 22 mmol/L (22-30); Chloride 104 mmol/L (98-107); Glucose 325 mg/dL (74-99); Non-African American GFR(CKD) >90 (>60 ml/min/1.73 sqM); Potassium 4.7 mmol/L (3.5-5.1); Sodium 131 mmol/L (137-145); Total Bilirubin 0.5 mg/dL (0.2-1.3); Total Protein 5.1 g/dL (6.3-8.2)
[2020-10-03 06:57] LABS: Glucose,Whole Blood 338 mg/dL (75-99)
[2020-10-03] MEDS: PANTOPRAZOLE 40 MG TABLET PO SCH (06:58)
[2020-10-03] MEDS: LEVOTHYROXINE 112 MCG TAB PO SCH (06:58)
[2020-10-03] MEDS: INSULIN ASPART (NovoLOG) 100 UNIT/ML VIAL SQ SCH ×4 (06:59→20:47)
[2020-10-03] MEDS: ATORVASTATIN 80 MG TAB PO SCH (09:23)
[2020-10-03] MEDS: DULoxetine HCL 60 MG CAPSULE.DR PO SCH (09:23)
[2020-10-03] MEDS: ASPIRIN 81 MG PO SCH (09:23)
[2020-10-03] MEDS: METOPROLOL TARTRATE 12.5 MG TAB PO SCH ×2 (09:23→20:47)
[2020-10-03] MEDS: CLOPIDOGREL 75 MG TAB PO SCH (09:23)
--- NOTE | 2020-10-03 10:30 | P.PN ---
Subjective Progress Note Date: 10/03/20 Sanjana Farley, is a 60 year old male who presented to [facility] emergency room with a chief complaint of nausea and shortness of breath, patient called EMS, EKG done by EMS revealed evidence of acute ST elevation myocardial infarction in the inferior leads, a STEMI alert was called and patient was brought into emergency room and taken directly to the laborer carpentry dock, patient underwent angioplasty and stent placement of the mid circumflex coronary artery she was admitted to intensive care unit post procedure for further evaluation and treatment patient was started on IV heparin He was evaluated in the emergency room vital examination on presentation revealed a temperature of 97.3 pulse 62 respiration 20 blood pressure 124/64 pulse ox 100% on room air Laboratory data reveals a white blood count of 8.7 hemoglobin 13.2 platelet count 347 glucose 277 sodium 134 potassium 4.1 BUN 10 creatinine 0.61 troponin level 0.049 TSH was 0.095 Testing in the emergency room revealed chest x-ray revealed evidence of early venous congestion versus acute bronchitis Past medical history is significant for insulin-dependent diabetes type 1 , history of hyperlipidemia and hyperthyroidism On 10/02/2020 patient was seen and examined in the ICU she is alert and oriented 3 in no apparent distress there is no fever or chills no headache or dizziness no chest pain no shortness of breath no cough no nausea or vomiting no abdominal pain no diarrhea no burning with urination no frequency or urgency and no hematuria On 10/03/2020 patient is alert and oriented 3. Patient currently resting in the intensive care unit. TSH low at 0.095. Synthroid dose decreased to 200 mics. Blood sugars also elevated will add Levemir 10 units. Patient requesting CAT scan due to recent weight loss but due to recent heart cath with contrast recommend patient will follow up with PCP and received CAT scan outpatient. Patient denies chest pain or shortness breath. Patient denies nausea vomiting or diarrhea. Patient denies any urinary burning or frequency Objective - Vital Signs Vital signs: Vital Signs Temp 98.0 F 10/03/20 08:00 Pulse 83 10/03/20 08:00 Resp 12 10/03/20 08:00 BP 111/59 10/03/20 08:00 Pulse Ox 97 10/03/20 08:00 Intake & Output 10/02/20 10/03/20 10/03/20 18:59 06:59 18:59 Output Total 800 450 Balance -800 -450 Weight 61.2 kg 59.9 kg Output: Urine 800 450 Other: Voiding Method Bedside Commode Bedside Commode # Voids 1 0 - Exam In general patient is alert and oriented ?-3 in no distress HEENT head normocephalic and atraumatic Neck is supple no JVD no goiter no lymphadenopathy no carotid bruit Chest examination is clear to auscultation no crackles no wheezing Cardiac exam reveals regular heart sounds S1 and S2 no gallops no murmurs Abdomen is soft nontender no organomegaly with normal bowel sounds Extremity exam reveals no edema no cyanosis or clubbing Neurological examination reveals no gross focal deficits - Labs CBC & Chem 7: 10/03/20 04:11 10/03/20 04:11 Labs: Abnormal Lab Results - Last 24 Hours (Table) 10/02/20 10/02/20 10/02/20 Range/Units 10:47 11:35 16:36 Hgb (11.4-16.0) gm/dL Hct (34.0-46.0) % RDW (11.5-15.5) % Sodium (137-145) mmol/L Glucose (74-99) mg/dL POC Glucose (mg/dL) 173 H 134 H 245 H (75-99) mg/dL AST (14-36) U/L Total Protein (6.3-8.2) g/dL Albumin (3.5-5.0) g/dL 10/02/20 10/03/20 10/03/20 Range/Units 20:37 04:11 04:11 Hgb 10.5 L (11.4-16.0) gm/dL Hct 33.3 L (34.0-46.0) % RDW 16.7 H (11.5-15.5) % Sodium 131 L (137-145) mmol/L Glucose 325 H (74-99) mg/dL POC Glucose (mg/dL) 296 H (75-99) mg/dL AST 52 H (14-36) U/L Total Protein 5.1 L (6.3-8.2) g/dL Albumin 2.8 L (3.5-5.0) g/dL 10/03/20 Range/Units 06:55 Hgb (11.4-16.0) gm/dL Hct (34.0-46.0) % RDW (11.5-15.5) % Sodium (137-145) mmol/L Glucose (74-99) mg/dL POC Glucose (mg/dL) 338 H (75-99) mg/dL AST (14-36) U/L Total Protein (6.3-8.2) g/dL Albumin (3.5-5.0) g/dL Assessment and Plan Plan: Acute inferior ST elevation myocardial infarction Underlying history of diabetes mellitus type 1 Underlying history of hyperthyroidism patient is maintained on Synthroid TSH 0.095 Synthroid dosed decreased to 200 mics Underlying history of hyperlipidemia maintained on Zocor Underlying history of gastroesophageal reflux disease At this time patient is admitted to intensive care unit She underwent angioplasty and stent placement of the circumflex artery Home medications reviewed and reordered
[2020-10-03 11:27] LABS: Glucose,Whole Blood 295 mg/dL (75-99)
--- NOTE | 2020-10-03 11:37 | P.PN ---
Subjective HISTORY OF PRESENTING ILLNESS This is a pleasant 60-year-old female past medical history significant for type I diabetes mellitus, dyslipidemia and chronic nicotine dependence. 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 She started feeling sick approximately 30 minutes ago. She had an acute onset of nausea, vomiting and diaphoresis that started at home. She called EMS. On their arrival an EKG showed ST elevations in the inferior leads and is in bigeminy. Repeat EKG in ER again showerd ST elevations in the inferior leads with persistent bigeminy. The ST elevations are difficult to discern given the frequent PVC's. There is no old for comparison. Chest xray revealed early venous congestion possible vs bronchitis with underlying interstitial lung disease. Laboratory data reviewed, WBC 8.7, hgb 13.2, platelets 347, sodium 134, potassium 4.1, creatinine 0.61 and magnesium 1.5. Current daily cardiac medications include simvastatin 20 mg daily. 10/03/2020 Pt is seen and examined resting comfortably laying flat in bed in no acute distress. She denies chest pain, shortness of breath, dizziness or palpitations. Blood pressure 111/59 herat rate 83 afebrile and maintaining oxygen saturation on room air. Laboratory data reviewed, WBC 8.6, hemoglobin 10.5, platelets 259, sodium 131, potassium 4.7, creatinine 0.65. Echocardiogram obtained revealed impaired LV systolic function with ejection fraction 30-35%, mid anterior, lateral, posterior, inferior, inferoseptal, anterior septal, apical anterior, lateral, inferior and septal wall motion hypokinesia, mild MR and mild TR noted. PHYSICAL EXAMINATION CONSTITUTIONAL: Diaphoretic. HEENT: Head is normocephalic. Pupils are equal, round. Sclerae anicteric. Mucous membranes of the mouth are moist. No JVD. No carotid bruit. CHEST EXAMINATION: Lungs are clear to auscultation. No chest wall tenderness is noted on palpation or with deep breathing. HEART EXAMINATION: Regular rate and rhythm. S1, S2 heard. No murmurs, gallops or rub. EXTREMITIES: 2+ peripheral pulses, no lower extremity edema and no calf tender ness. ASSESSMENT Inferior wall STEMI Bigeminy Ischemic cardiomyopathy Dyslipidemia Diabetes mellitus Chronic nicotine dependence Recent colonoscopy secondary to unintentional weight loss PLAN Continue dual antiplatelet therapy. Add a small dose of lisinopril 2.5 mg daily. Increase activity and ambulation. She can transfer to . Possible discharge tomorrow if she continues to improve. Nurse Practitioner note has been reviewed, I agree with a documented findings and plan of care. Patient was seen and examined. Objective - Vital Signs Vital signs: Vital Signs Temp 98.0 F 10/03/20 08:00 Pulse 83 10/03/20 08:00 Resp 12 10/03/20 08:00 BP 111/59 10/03/20 08:00 Pulse Ox 97 10/03/20 08:00 Intake & Output 10/02/20 10/03/20 10/03/20 18:59 06:59 18:59 Output Total 800 450 Balance -800 -450 Weight 61.2 kg 59.9 kg Output: Urine 800 450 Other: Voiding Method Bedside Commode Bedside Commode # Voids 1 0 - Labs CBC & Chem 7: 10/03/20 04:11 10/03/20 04:11 Labs: Abnormal Lab Results - Last 24 Hours (Table) 10/02/20 10/02/20 10/02/20 Range/Units 11:35 16:36 20:37 Hgb (11.4-16.0) gm/dL Hct (34.0-46.0) % RDW (11.5-15.5) % Sodium (137-145) mmol/L Glucose (74-99) mg/dL POC Glucose (mg/dL) 134 H 245 H 296 H (75-99) mg/dL AST (14-36) U/L Total Protein (6.3-8.2) g/dL Albumin (3.5-5.0) g/dL 10/03/20 10/03/20 10/03/20 Range/Units 04:11 04:11 06:55 Hgb 10.5 L (11.4-16.0) gm/dL Hct 33.3 L (34.0-46.0) % RDW 16.7 H (11.5-15.5) % Sodium 131 L (137-145) mmol/L Glucose 325 H (74-99) mg/dL POC Glucose (mg/dL) 338 H (75-99) mg/dL AST 52 H (14-36) U/L Total Protein 5.1 L (6.3-8.2) g/dL Albumin 2.8 L (3.5-5.0) g/dL
[2020-10-03 16:42] LABS: Glucose,Whole Blood 358 mg/dL (75-99)
[2020-10-03] MEDS: NICOTINE 21MG/24HR PATCH TRANSDERM SCH (18:03)
[2020-10-03 20:00] LABS: Glucose,Whole Blood 185 mg/dL (75-99)
[2020-10-03] MEDS ORDERED: INSULIN DETEMIR (LEVEMIR) 100 UNIT/ML SYR SQ SCH (21:00)
[2020-10-04 05:57] LABS: Glucose,Whole Blood 86 mg/dL (75-99)
[2020-10-04] MEDS: PANTOPRAZOLE 40 MG TABLET PO SCH (06:27)
[2020-10-04] MEDS: INSULIN ASPART (NovoLOG) 100 UNIT/ML VIAL SQ SCH ×2 (06:27→12:04)
[2020-10-04] MEDS ORDERED: LEVOTHYROXINE 100 MCG TAB PO SCH (06:30)
[2020-10-04 08:17] LABS: ALT 25 U/L (4-34); AST 34 U/L (14-36); African American GFR (CKD) >90 (>60 ml/min/1.73 sqM); Albumin 2.9 g/dL (3.5-5.0); Alkaline Phosphatase 87 U/L (38-126); Anion Gap 6 mmol/L; Blood Urea Nitrogen 11 mg/dL (7-17); Calcium 8.7 mg/dL (8.4-10.2); Carbon Dioxide 28 mmol/L (22-30); Chloride 104 mmol/L (98-107); Glucose 139 mg/dL (74-99); Non-African American GFR(CKD) >90 (>60 ml/min/1.73 sqM); Potassium 3.7 mmol/L (3.5-5.1); Sodium 138 mmol/L (137-145); Total Bilirubin 0.5 mg/dL (0.2-1.3); Total Protein 5.3 g/dL (6.3-8.2)
[2020-10-04] MEDS: DULoxetine HCL 60 MG CAPSULE.DR PO SCH (08:22)
[2020-10-04] MEDS: ATORVASTATIN 80 MG TAB PO SCH (08:22)
[2020-10-04] MEDS: CLOPIDOGREL 75 MG TAB PO SCH (08:22)
[2020-10-04] MEDS: ASPIRIN 81 MG PO SCH (08:22)
[2020-10-04 08:26] VITALS: RESP 16; TEMP 98.5
[2020-10-04 08:28] LABS: Anisocytosis Slight; Basophils # (A) 0.1 k/uL (0-0.2); Basophils % (A) 1 %; Eosinophils # (A) 0.2 k/uL (0-0.7); Eosinophils % (A) 2 %; HCT 33.1 % (34.0-46.0); HGB 10.7 gm/dL (11.4-16.0); Lymphocytes % (A) 38 %; MCH 26.2 pg (25.0-35.0); MCHC 32.3 g/dL (31.0-37.0); MCV 81.2 fL (80.0-100.0); Mean Platelet Volume 10.1; Monocytes # (A) 0.5 k/uL (0-1.0); Monocytes % (A) 7 %; Neutrophils # (A) 3.9 k/uL (1.3-7.7); Neutrophils % (A) 50 %; Platelet Count 271 k/uL (150-450); RBC 4.07 m/uL (3.80-5.40); RDW 16.6 % (11.5-15.5); WBC 7.8 k/uL (3.8-10.6)
[2020-10-04 11:37] LABS: Glucose,Whole Blood 306 mg/dL (75-99)
[2020-10-04] MEDS: METOPROLOL TARTRATE 12.5 MG TAB PO SCH (12:05)
[2020-10-04 12:06] VITALS: BP 102/48; PULSE 71
--- NOTE | 2020-10-04 12:55 | P.PN ---
Subjective Progress Note Date: 10/04/20 HISTORY OF PRESENT ILLNESS: This is a pleasant 60-year-old female past medical history significant for type I diabetes mellitus, dyslipidemia and chronic nicotine dependence. 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 She started feeling sick approximately 30 minutes ago. She had an acute onset of nausea, vomiting and diaphoresis that started at home. She called EMS. On their arrival an EKG showed ST elevations in the inferior leads and is in bigeminy. Repeat EKG in ER again showerd ST elevations in the inferior leads with persistent bigeminy. The ST elevations are difficult to discern given the frequent PVC's. There is no old for comparison. Chest xray revealed early venous congestion possible vs bronchitis with underlying interstitial lung disease. Laboratory data reviewed, WBC 8.7, hgb 13.2, platelets 347, sodium 134, potassium 4.1, creatinine 0.61 and magnesium 1.5. Current daily cardiac medications include simvastatin 20 mg daily. 10/03/2020 Pt is seen and examined resting comfortably laying flat in bed in no acute distress. She denies chest pain, shortness of breath, dizziness or palpitations. Blood pressure 111/59 herat rate 83 afebrile and maintaining oxygen saturation on room air. Laboratory data reviewed, WBC 8.6, hemoglobin 10.5, platelets 259, sodium 131, potassium 4.7, creatinine 0.65. Echocardiogram obtained revealed impaired LV systolic function with ejection fraction 30-35%, mid anterior, lateral, posterior, inferior, inferoseptal, anterior septal, apical anterior, lateral, inferior and septal wall motion hypokinesia, mild MR and mild TR noted. 10/04/2020 Patient examined this morning at bedside. She denies chest pain or pressure. Denies shortness of breath. Patient's blood pressure has been low with a systolic in the 80s. PHYSICAL EXAM: VITAL SIGNS: Reviewed. GENERAL: Well-developed in no acute distress. NECK: Supple. No JVD or thyromegaly LUNGS: Respirations even and unlabored. Lungs essentially clear to auscultation bilaterally. HEART: Regular rate and rhythm. S1 and S2 heard. EXTREMITIES: Normal range of motion. No clubbing or cyanosis. Peripheral pulses intact. No lower extremity edema ASSESSMENT: Inferior wall STEMI, status post PCI to circumflex Bigeminy Ischemic myopathy Hyperlipidemia Diabetes mellitus Chronic nicotine dependence Recent colonoscopy secondary to unintentional weight loss PLAN: Continue dual antiplatelet therapy with aspirin and Plavix Discontinue lisinopril as patient's blood pressure is unable to tolerate at this time. We will readdress adding lisinopril on an outpatient basis Discharge per medicine. Patient to follow up outpatient. Nurse practitioner note has been reviewed by physician. Signing provider agrees with the documented findings, assessment, and plan of care. Objective - Vital Signs Vital signs: Vital Signs Temp 98.5 F 10/04/20 08:00 Pulse 71 10/04/20 12:00 Resp 16 10/04/20 12:00 BP 102/48 10/04/20 12:00 Pulse Ox 99 10/04/20 12:00 Intake & Output 10/03/20 10/04/20 10/04/20 18:59 06:59 18:59 Intake Total 240 Output Total 800 Balance -800 240 Weight 57.2 kg Intake: Oral 240 Output: Urine 800 Other: Voiding Method Toilet Toilet Toilet # Voids 1 - Labs CBC & Chem 7: 10/04/20 07:44 10/04/20 07:44 Labs: Abnormal Lab Results - Last 24 Hours (Table) 10/03/20 10/03/20 10/04/20 Range/Units 16:41 19:59 07:44 Hgb 10.7 L (11.4-16.0) gm/dL Hct 33.1 L (34.0-46.0) % RDW 16.6 H (11.5-15.5) % Glucose (74-99) mg/dL POC Glucose (mg/dL) 358 H 185 H (75-99) mg/dL Total Protein (6.3-8.2) g/dL Albumin (3.5-5.0) g/dL 10/04/20 10/04/20 Range/Units 07:44 11:35 Hgb (11.4-16.0) gm/dL Hct (34.0-46.0) % RDW (11.5-15.5) % Glucose 139 H (74-99) mg/dL POC Glucose (mg/dL) 306 H (75-99) mg/dL Total Protein 5.3 L (6.3-8.2) g/dL Albumin 2.9 L (3.5-5.0) g/dL
--- NOTE | 2020-10-04 14:16 | P.DS ---
Providers Date of admission: 10/01/20 13:24 Expected date of discharge: 10/04/20 Attending physician: Ambika Berkowitz Consults: 10/01/20 14:15 Consult Physician Routine Consulting Provider: Ambika Berkowitz Consult Reason/Comments: Medical management Do you want consulting provider notified?: Already Contacted 10/01/20 14:24 Consult Physician Routine Consulting Provider: Cookie Serna Consult Reason/Comments: STEMI Do you want consulting provider notified?: Already Contacted Primary care physician: Molly Wallace Hospital Course: Diagnosis on discharge: Acute inferior ST elevation myocardial infarction, status post cardiac catheterization with angioplasty and stent placement to the mid circumflex artery Underlying history of diabetes mellitus type 1 Underlying history of hyperthyroidism patient is maintained on Synthroid TSH 0.095 Synthroid dosed decreased to 200 mics, further adjustments may be needed in the next few months as outpatient Underlying history of hyperlipidemia maintained on Zocor Underlying history of gastroesophageal reflux disease Hospital course: Sanjana Farley, is a 60 year old male who presented to [facility] emergency room with a chief complaint of nausea and shortness of breath, patient called EMS, EKG done by EMS revealed evidence of acute ST elevation myocardial infarction in the inferior leads, a STEMI alert was called and patient was brought into emergency room and taken directly to the cath lab manager, patient underwent angioplasty and stent placement of the mid circumflex coronary artery she was admitted to intensive care unit post procedure for further evaluation and treatment patient was started on IV heparin He was evaluated in the emergency room vital examination on presentation revealed a temperature of 97.3 pulse 62 respiration 20 blood pressure 124/64 pulse ox 100% on room air Laboratory data reveals a white blood count of 8.7 hemoglobin 13.2 platelet count 347 glucose 277 sodium 134 potassium 4.1 BUN 10 creatinine 0.61 troponin level 0.049 TSH was 0.095 Testing in the emergency room revealed chest x-ray revealed evidence of early venous congestion versus acute bronchitis Past medical history is significant for insulin-dependent diabetes type 1 , history of hyperlipidemia and hyperthyroidism On 10/02/2020 patient was seen and examined in the ICU she is alert and oriented 3 in no apparent distress there is no fever or chills no headache or dizziness no chest pain no shortness of breath no cough no nausea or vomiting no abdominal pain no diarrhea no burning with urination no frequency or urgency and no hematuria On 10/03/2020 patient is alert and oriented 3. Patient currently resting in the intensive care unit. TSH low at 0.095. Synthroid dose decreased to 200 mics. Blood sugars also elevated will add Levemir 10 units. Patient requesting CAT scan due to recent weight loss but due to recent heart cath with contrast recommend patient will follow up with PCP and received CAT scan outpatient. Patient denies chest pain or shortness breath. Patient denies nausea vomiting or diarrhea. Patient denies any urinary burning or frequency On 10/04/2020 Patient was seen and examined on the medical floor, he is alert and oriented x 3 in no distress, he denies any complaints there is no fever or chills no headache or dizziness no chest pain no shortness of breath no palpitation no cough no nausea or vomiting no abdominal pain no diarrhea no blood in the stools no burning with urination no frequency or urgency and no hematuria, there is no weakness or numbness in any of the extremities no change in vision speech or gait. Patient was evaluated by cardiology and was cleared for discharge, patient will follow-up with her primary care physician Dr. Wallace, within 1 week patient will also follow-up with cardiology. Plan - Discharge Summary Discharge Rx Participant: No New Discharge Prescriptions: New Aspirin 81 mg PO DAILY chew Nicotine 21Mg/24Hr Patch [Habitrol] 1 patch TRANSDERM HS patch Metoprolol Tartrate [Lopressor] 12.5 mg PO BID tab Atorvastatin [Lipitor] 80 mg PO DAILY tab Clopidogrel [Plavix] 75 mg PO DAILY tab Levothyroxine Sodium [Synthroid] 200 mcg PO DAILY@0630 tab Continue Insulin Degludec [Tresiba] 10 units SQ HS DULoxetine HCL [Cymbalta] 120 mg PO DAILY Omeprazole 80 mg PO DAILY INSULIN LISPRO (humaLOG) [humaLOG] See Protocol SQ ACHS PRN PRN Reason: hyperglycemia Discontinued Levothyroxine Sodium 224 mcg PO DAILY Simvastatin [Zocor] 20 mg PO HS Discharge Medication List DULoxetine HCL [Cymbalta] 120 mg PO DAILY 09/24/20 [History] INSULIN LISPRO (humaLOG) [humaLOG] See Protocol SQ ACHS PRN 09/24/20 [History] Insulin Degludec [Tresiba] 10 units SQ HS 09/24/20 [History] Omeprazole 80 mg PO DAILY 09/24/20 [History] Aspirin 81 mg PO DAILY chew 10/04/20 [Rx] Atorvastatin [Lipitor] 80 mg PO DAILY tab 10/04/20 [Rx] Clopidogrel [Plavix] 75 mg PO DAILY tab 10/04/20 [Rx] Levothyroxine Sodium [Synthroid] 200 mcg PO DAILY@0630 tab 10/04/20 [Rx] Metoprolol Tartrate [Lopressor] 12.5 mg PO BID tab 10/04/20 [Rx] Nicotine 21Mg/24Hr Patch [Habitrol] 1 patch TRANSDERM HS patch 10/04/20 [Rx] Follow up Appointment(s)/Referral(s): Molly Wallace MD [Primary Care Provider] - 1-2 days Cookie Serna MD [STAFF PHYSICIAN] - 1 Week
== END 2020-10-04 15:30 | disposition home or self-care (01) | DRG 247 ==
LOC: EC 13:05 → 2SICU 13:24 → 3SCARD 10-03 17:47
PROVIDERS: ADMIT Internal Medicine; ATTEND Internal Medicine
DX: I21.19 ST elevation (STEMI) myocardial infarction involving other coronary artery of inferior wall (principal); I47.2 Ventricular tachycardia; E10.9 Type 1 diabetes mellitus without complications; Z79.4 Long term (current) use of insulin; I25.10 Atherosclerotic heart disease of native coronary artery without angina pectoris; I25.5 Ischemic cardiomyopathy; I49.3 Ventricular premature depolarization; I10 Essential (primary) hypertension; E78.5 Hyperlipidemia, unspecified; K21.9 Gastro-esophageal reflux disease without esophagitis; E05.90 Thyrotoxicosis, unspecified without thyrotoxic crisis or storm; F17.210 Nicotine dependence, cigarettes, uncomplicated; Z71.6 Tobacco abuse counseling; Z79.890 Hormone replacement therapy; Z79.899 Other long term (current) drug therapy; Z98.891 History of uterine scar from previous surgery; Z90.710 Acquired absence of both cervix and uterus; Z87.42 Personal history of other diseases of the female genital tract; Z87.19 Personal history of other diseases of the digestive system; Z98.890 Other specified postprocedural states; Z88.5 Allergy status to narcotic agent; Z88.0 Allergy status to penicillin; Z91.048 Other nonmedicinal substance allergy status
CPT/HCPCS: 36415; 71045; 80048; 80053; 80061; 83036; 83735; 84443; 84484; 85025; 85610; 85730; 93005; 93306; 93454; 96374; 99291

== ENCOUNTER 2022-03-15 20:39 | Emergency (ER) | payer MEDICARE, OTHER ==
[2022-03-15 20:48] VITALS: RESP 16; TEMP 98
[2022-03-15 21:33] LABS: Glucose,Whole Blood 87 mg/dL (70-110)
[2022-03-15 21:54] LABS: Glucose,Whole Blood 103 mg/dL (70-110)
[2022-03-15 22:36] LABS: Anisocytosis Slight; Basophils # (A) 0.1 k/uL (0-0.2); Basophils % (A) 1 %; Eosinophils # (A) 0.2 k/uL (0-0.7); Eosinophils % (A) 2 %; HCT 33.1 % (34.0-46.0); HGB 10.3 gm/dL (11.4-16.0); Hypochromasia Slight; Lymphocytes # (A) 2.7 k/uL (1.0-4.8); Lymphocytes % (A) 32 %; MCH 24.9 pg (25.0-35.0); MCV 80.3 fL (80.0-100.0); Mean Platelet Volume 8.9; Microcytosis Slight; Monocytes # (A) 0.6 k/uL (0-1.0); Monocytes % (A) 8 %; Neutrophils # (A) 4.4 k/uL (1.3-7.7); Neutrophils % (A) 54 %; Platelet Count 379 k/uL (150-450); RBC 4.12 m/uL (3.80-5.40); RDW 17.3 % (11.5-15.5); WBC 8.2 k/uL (3.8-10.6)
--- NOTE | 2022-03-15 22:42 | XR ---
EXAMINATION TYPE: XR chest 2V DATE OF EXAM: 03/15/2022 COMPARISON: 10/01/2020 HISTORY: Chest pain TECHNIQUE: 2 views FINDINGS: Heart and mediastinum are normal. Lungs are clear. Diaphragm is normal. Bony thorax appears normal. IMPRESSION: Normal chest. No change.
[2022-03-15 22:48] LABS: ALT 32 U/L (4-34); AST 26 U/L (14-36); African American GFR (CKD) >90 (>60 ml/min/1.73 sqM); Albumin 3.6 g/dL (3.5-5.0); Alkaline Phosphatase 98 U/L (38-126); Anion Gap 7 mmol/L; Blood Urea Nitrogen 18 mg/dL (7-17); Calcium 8.7 mg/dL (8.4-10.2); Carbon Dioxide 24 mmol/L (22-30); Chloride 107 mmol/L (98-107); Glucose 68 mg/dL (74-99); Non-African American GFR(CKD) >90 (>60 ml/min/1.73 sqM); Potassium 3.8 mmol/L (3.5-5.1); Sodium 138 mmol/L (137-145); Total Bilirubin 0.4 mg/dL (0.2-1.3); Total Protein 6.3 g/dL (6.3-8.2)
[2022-03-15 22:53] LABS: Partial Thromboplastin Time 20.9 sec (22.0-30.0); Prothrombin Time 10.8 sec (9.0-12.0)
--- NOTE | 2022-03-15 23:30 | ED ---
General Adult HPI - General Chief complaint: Syncope Stated complaint: Syncope Time Seen by Provider: 03/15/22 23:09 Source: EMS Mode of arrival: EMS - History of Present Illness Initial comments: This is a 61-year-old female with a past medical history including diabetes and hypothyroidism presented to the emergency department for a syncopal episode. The patient reported that she was at the sink, cooking dinner when she felt flushed and lightheaded and lowered herself to the ground and had a syncopal episode. The patient stated was witnessed by her and did state that she came to immediately. The patient checked her blood sugar and it was not low. The patient stated that she was back to her baseline after this and wanted to be evaluated. The patient stated that she had been eating and drinking appropriately throughout the day and denied any acute symptoms leading up to the syncopal episode. The patient did not hit her head and did not lose consciousness. The patient was resting in bed without any further acute pain or distress noted. - Related Data Home Medications Medication Instructions Recorded Confirmed DULoxetine HCL [Cymbalta] 120 mg PO DAILY 09/24/20 10/01/20 INSULIN LISPRO (humaLOG) [humaLOG] See Protocol SQ ACHS PRN 09/24/20 10/01/20 Insulin Degludec [Tresiba] 10 units SQ HS 09/24/20 10/01/20 Omeprazole 80 mg PO DAILY 09/24/20 10/01/20 Previous Rx's Medication Instructions Recorded Aspirin 81 mg PO DAILY chew 10/04/20 Atorvastatin [Lipitor] 80 mg PO DAILY tab 10/04/20 Clopidogrel [Plavix] 75 mg PO DAILY tab 10/04/20 Levothyroxine Sodium [Synthroid] 200 mcg PO DAILY@0630 tab 10/04/20 Metoprolol Tartrate [Lopressor] 12.5 mg PO BID tab 10/04/20 Nicotine 21Mg/24Hr Patch [Habitrol] 1 patch TRANSDERM HS patch 10/04/20 Allergies Allergy/AdvReac Type Severity Reaction Status Date / Time adhesive tape Allergy Rash/Hives Verified 03/15/22 20:42 codeine Allergy "feel like Verified 03/15/22 20:42 I'm speed" Penicillins Allergy Rash/Hives Verified 03/15/22 20:42 Review of Systems ROS Statement: Those systems with pertinent positive or pertinent negative responses have been documented in the HPI. ROS Other: All systems not noted in ROS Statement are negative. Past Medical History Past Medical History: Diabetes Mellitus, GERD/Reflux, Hyperlipidemia, Myocardial Infarction ([place]), Thyroid Disorder Additional Past Medical History / Comment(s): wt loss 30# in less than a year Last Myocardial Infarction Date:: 10/01/20 History of Any Multi-Drug Resistant Organisms: None Reported Past Surgical History: Section, Heart Catheterization With Stent, Hysterectomy Additional Past Surgical History / Comment(s): C/S x2, pilonidal cyst. 10/01/20 heart stent placed to distal CIRC Past Anesthesia/Blood Transfusion Reactions: No Reported Reaction Date of Last Stent Placement:: 10/01/20 Past Psychological History: No Psychological Hx Reported Smoking Status: Current every day smoker Past Alcohol Use History: None Reported Past Drug Use History: None Reported General Exam Limitations: no limitations General appearance: alert, in no apparent distress Head exam: Present: atraumatic, normocephalic, normal inspection Eye exam: Present: normal appearance, PERRL Pupils: Present: normal accommodation ENT exam: Present: normal exam, normal oropharynx, mucous membranes moist Neck exam: Present: normal inspection, full ROM Respiratory exam: Present: normal lung sounds bilaterally Cardiovascular Exam: Present: regular rate, normal rhythm GI/Abdominal exam: Present: soft, normal bowel sounds Extremities exam: Present: normal inspection, full ROM, normal capillary refill Back exam: Present: normal inspection, full ROM Neurological exam: Present: alert, oriented X3, CN II-XII intact Psychiatric exam: Present: normal affect, normal mood Skin exam: Present: warm, dry Course Vital Signs 03/15/22 20:39 Temperature 98.0 F Pulse Rate 90 Respiratory 16 Rate Blood Pressure 148/65 O2 Sat by Pulse 99 Oximetry EKG Findings - EKG Comments: EKG Findings:: An EKG was obtained and was interpreted by myself showing a rate of 95, [place] interval of 135, QRS duration of 90 and QTC of 390. This EKG showed a normal sinus rhythm with no ST segment elevation or depression noted. Medical Decision Making - Medical Decision Making Was pt. sent in by a medical professional or institution (, PA, SEARCH OPTIMIZATION ANALYST, urgent care, hospital, or [place] health care facility...) When possible be specific @ -No Did you speak to anyone other than the patient for history (EMS, parent, family, police, friend...)? What history was obtained from this source @ -Yes, patient's sister and daughter Did you review nursing and triage notes (agree or disagree)? Why? @ -I reviewed and agree with nursing and triage notes Were old charts reviewed (outside hosp., previous admission, EMS record, old EKG, old radiological studies, urgent care reports/EKG's, [place] health care facility records)? Report findings @ -No old charts were reviewed Differential Diagnosis (chest pain, altered mental status, abdominal pain women, abdominal pain men, vaginal bleeding, weakness, fever, dyspnea, syncope, headache, dizziness, GI bleed, back pain, seizure, CVA, palpatations, mental health)? @ -Vasovagal syncope, hypoglycemia EKG interpreted by me (3pts min.). @ -As above X-rays interpreted by me (1pt min.). @ -Chest x-ray was obtained and was interpreted by myself showing no acute process. CT interpreted by me (1pt min.). @ -None done U/S interpreted by me (1pt. min.). @ -None done What testing was considered but not performed or refused? (CT, X-rays, U/S, l abs)? Why? @ -None What meds were considered but not given or refused? Why? @ -None Did you discuss the management of the patient with other professionals (professionals i.e. , PA, SEARCH OPTIMIZATION ANALYST, lab, RT, psych nurse, social media developer, java j2ee technical lead, teacher, senior administrative services officer, human services case manager)? Give summary @ -No Was smoking cessation discussed for >3mins.? @ -Yes Was critical care preformed (if so, how long)? @ -No Were there social determinants of health that impacted care today? How? (Homelessness, low income, unemployed, alcoholism, drug addiction, transportation, low edu. Level, literacy, decrease access to med. care, penitentiary, rehab)? @ -No Was there de-escalation of care discussed even if they declined (Discuss DNR or withdrawal of care, Hospice)? DNR status @ -No What co-morbidities impacted this encounter? (DM, HTN, Smoking, COPD, CAD, Canc er, CVA, ARF, Chemo, Hep., AIDS, mental health diagnosis, sleep apnea, morbid obesity)? @ -Diabetes, hypothyroidism Was patient admitted / discharged? Hospital course, mention meds given and route, prescriptions, significant lab abnormalities, going to OR and other pertinent info. @ -The patient was seen and evaluated emergency department. Physical exam, the patient was resting in bed without any acute complaints. Vital signs were stable. All laboratory workup was within normal limits and chest x-ray was negative. EKG was also negative at this time. The patient had no acute complaints or symptoms at this time and due to the negative workup was likely vasovagal syncope. The patient was advised to continue to hydrate and to pres ent back to the emergency department if her symptoms became acutely worse. The patient was agreeable to this and all of her questions were answered. The patient was discharged home in stable condition with her sister and daughter. Undiagnosed new problem with uncertain prognosis? @ -No Drug Therapy requiring intensive monitoring for toxicity (Heparin, Nitro, Insulin, Cardizem)? @ -No Were any procedures done? @ -No Diagnosis/symptom? @ -Vasovagal syncope Acute, or Chronic, or Acute on Chronic? @ -Acute Uncomplicated (without systemic symptoms) or Complicated (systemic symptoms)? @ -Uncomplicated Side effects of treatment? @ -No Exacerbation, Progression, or Severe Exacerbation? @ -No Poses a threat to life or bodily function? How? (Chest pain, [place], [place], pneumonia, PE, COPD, DKA, ARF, appy, cholecystitis, CVA, Diverticulitis, Homicidal, Suicidal, threat to staff... and all critical care pts) @ -No - Lab Data Result diagrams: 03/15/22 22:29 03/15/22 22:29 Lab Results 03/15/22 03/15/22 03/15/22 Range/Units 21:31 21:52 22:29 WBC 8.2 (3.8-10.6) k/uL RBC 4.12 (3.80-5.40) m/uL Hgb 10.3 L (11.4-16.0) gm/dL Hct 33.1 L (34.0-46.0) % MCV 80.3 (80.0-100.0) fL MCH 24.9 L (25.0-35.0) pg MCHC 31.0 (31.0-37.0) g/dL RDW 17.3 H (11.5-15.5) % Plt Count 379 (150-450) k/uL MPV 8.9 Neutrophils % 54 % Lymphocytes % 32 % Monocytes % 8 % Eosinophils % 2 % Basophils % 1 % Neutrophils # 4.4 (1.3-7.7) k/uL Lymphocytes # 2.7 (1.0-4.8) k/uL Monocytes # 0.6 (0-1.0) k/uL Eosinophils # 0.2 (0-0.7) k/uL Basophils # 0.1 (0-0.2) k/uL Hypochromasia Slight Anisocytosis Slight Microcytosis Slight PT (9.0-12.0) sec INR (<1.2) APTT (22.0-30.0) sec Sodium (137-145) mmol/L Potassium (3.5-5.1) mmol/L Chloride (98-107) mmol/L Carbon Dioxide (22-30) mmol/L Anion Gap mmol/L BUN (7-17) mg/dL Creatinine (0.52-1.04) mg/dL Est GFR (CKD-EPI)AfAm (>60 ml/min/1.73 sqM) Est GFR (CKD-EPI)NonAf (>60 ml/min/1.73 sqM) Glucose (74-99) mg/dL POC Glucose (mg/dL) 87 103 (70-110) mg/dL POC Glu Bicycle Service Technician ID Giorgio Shetty Brittany Calcium (8.4-10.2) mg/dL Total Bilirubin (0.2-1.3) mg/dL AST (14-36) U/L ALT (4-34) U/L Alkaline Phosphatase (38-126) U/L Troponin I (0.000-0.034) ng/mL Total Protein (6.3-8.2) g/dL Albumin (3.5-5.0) g/dL 03/15/22 03/15/22 03/15/22 Range/Units 22:29 22:29 22:29 WBC (3.8-10.6) k/uL RBC (3.80-5.40) m/uL Hgb (11.4-16.0) gm/dL Hct (34.0-46.0) % MCV (80.0-100.0) fL MCH (25.0-35.0) pg MCHC (31.0-37.0) g/dL RDW (11.5-15.5) % Plt Count (150-450) k/uL MPV Neutrophils % % Lymphocytes % % Monocytes % % Eosinophils % % Basophils % % Neutrophils # (1.3-7.7) k/uL Lymphocytes # (1.0-4.8) k/uL Monocytes # (0-1.0) k/uL Eosinophils # (0-0.7) k/uL Basophils # (0-0.2) k/uL Hypochromasia Anisocytosis Microcytosis PT 10.8 (9.0-12.0) sec INR 1.0 (<1.2) APTT 20.9 L (22.0-30.0) sec Sodium 138 (137-145) mmol/L Potassium 3.8 (3.5-5.1) mmol/L Chloride 107 (98-107) mmol/L Carbon Dioxide 24 (22-30) mmol/L Anion Gap 7 mmol/L BUN 18 H (7-17) mg/dL Creatinine 0.66 (0.52-1.04) mg/dL Est GFR (CKD-EPI)AfAm >90 (>60 ml/min/1.73 sqM) Est GFR (CKD-EPI)NonAf >90 (>60 ml/min/1.73 sqM) Glucose 68 L (74-99) mg/dL POC Glucose (mg/dL) (70-110) mg/dL POC Glu Bicycle Service Technician ID Calcium 8.7 (8.4-10.2) mg/dL Total Bilirubin 0.4 (0.2-1.3) mg/dL AST 26 (14-36) U/L ALT 32 (4-34) U/L Alkaline Phosphatase 98 (38-126) U/L Troponin I <0.012 (0.000-0.034) ng/mL Total Protein 6.3 (6.3-8.2) g/dL Albumin 3.6 (3.5-5.0) g/dL Disposition Clinical Impression: Vasovagal syncope Disposition: HOME SELF-CARE Condition: Stable Instructions (If sedation given, give patient instructions): Syncope (DC) Is patient prescribed a controlled substance at d/c from ED?: No Referrals: Laming,Molly, MD [Primary Care Provider] - 1-2 days Time of Disposition: 23:10
[2022-03-15 23:38] VITALS: BP 115/57; PULSE 77
== END 2022-03-15 23:38 | disposition home or self-care (01) ==
LOC: EC 20:39
DX: R55 Syncope and collapse (principal); E11.9 Type 2 diabetes mellitus without complications; K21.9 Gastro-esophageal reflux disease without esophagitis; I25.2 Old myocardial infarction; E07.9 Disorder of thyroid, unspecified; F17.200 Nicotine dependence, unspecified, uncomplicated; Z88.0 Allergy status to penicillin; Z88.8 Allergy status to other drugs, medicaments and biological substances; Z88.5 Allergy status to narcotic agent; Z79.4 Long term (current) use of insulin; Z79.899 Other long term (current) drug therapy
CPT/HCPCS: 36415; 71046; 80053; 84484; 85025; 85610; 85730; 99284

== ENCOUNTER 2022-05-21 06:00 | Day surgery (SDC) | payer MEDICARE, OTHER ==
[2022-05-20 08:32] VITALS: BMI 24.1
[2022-05-21] MEDS ORDERED: ALPRAZolam 0.5 MG TAB PO PRN (06:06)
[2022-05-21] MEDS ORDERED: NITROGLYCERIN SL TABS 0.4 MG TAB SUBLINGUAL PRN (06:06)
[2022-05-21] MEDS ORDERED: ASPIRIN 325 MG TAB PO STA (06:06)
[2022-05-21] MEDS ORDERED: HEPARIN SODIUM,PORCINE 2,500 UNIT in SODIUM CHLORIDE 0.9% 250 ML IRRIGATION PRN (06:06)
[2022-05-21] MEDS ORDERED: SODIUM CHLORIDE 0.9% 1,000 ML in EMPTY BAG 1 BAG IV SCH (06:06)
[2022-05-21] MEDS ORDERED: ATORVASTATIN 80 MG TAB PO STA (06:06)
[2022-05-21] MEDS ORDERED: HEPARIN SODIUM,PORCINE 10,000 UNIT in SODIUM CHLORIDE 0.9% 1,000 ML IRRIGATION PRN (06:06)
[2022-05-21] MEDS ORDERED: ALPRAZolam 0.25 MG TAB PO PRN (06:06)
[2022-05-21] MEDS ORDERED: SODIUM CHLORIDE 0.9% 1,000 ML IV ONE ×2 (06:15→08:49)
[2022-05-21 06:33] LABS: Glucose,Whole Blood 182 mg/dL (70-110)
[2022-05-21 06:37] LABS: Basophils # (A) 0.1 k/uL (0-0.2); Basophils % (A) 1 %; Eosinophils # (A) 0.3 k/uL (0-0.7); Eosinophils % (A) 3 %; HCT 34.2 % (34.0-46.0); HGB 10.9 gm/dL (11.4-16.0); Hypochromasia Moderate; Lymphocytes # (A) 2.8 k/uL (1.0-4.8); Lymphocytes % (A) 35 %; MCH 24.8 pg (25.0-35.0); MCHC 31.7 g/dL (31.0-37.0); MCV 78.1 fL (80.0-100.0); Mean Platelet Volume 8.3; Microcytosis Slight; Monocytes # (A) 0.5 k/uL (0-1.0); Monocytes % (A) 6 %; Neutrophils # (A) 4.3 k/uL (1.3-7.7); Neutrophils % (A) 53 %; Platelet Count 440 k/uL (150-450); RBC 4.38 m/uL (3.80-5.40); RDW 15.9 % (11.5-15.5)
[2022-05-21 06:45] VITALS: RESP 16; TEMP 97.1
[2022-05-21] MEDS ORDERED: HEPARIN SODIUM 1,000 UN/ML (10ML VL) ONE ×2 (07:11→07:34)
[2022-05-21] MEDS ORDERED: VERAPAMIL 2.5 MG/ML 2 ML AMP ONE ×2 (07:11→08:02)
[2022-05-21] MEDS ORDERED: fentaNYL (PF) 50 MCG/ML 2 ML AMP ONE ×2 (07:12→07:34)
[2022-05-21] MEDS ORDERED: MIDAZOLAM 2 MG/2 ML VIAL IV ONE ×2 (07:45→08:03)
[2022-05-21] MEDS ORDERED: fentaNYL (PF) 50 MCG/ML 2 ML AMP IV ONE ×2 (07:45→08:03)
[2022-05-21] MEDS ORDERED: LIDOCAINE 1% INJ 10MG/ML (5 ML VIAL-PF) SQ ONE ×3 (07:47→07:57)
[2022-05-21] MEDS ORDERED: VERAPAMIL SYRINGE (5 MG/10 ML) INTRAARTER ONE ×2 (07:55→08:07)
[2022-05-21] MEDS ORDERED: HEPARIN SODIUM 1,000 UN/ML (10ML VL) IV ONE ×4 (07:56→08:44)
[2022-05-21] MEDS ORDERED: CLOPIDOGREL 75 MG TAB ONE (08:24)
[2022-05-21] MEDS ORDERED: NITROGLYCERIN 1000MCG/10ML SYRINGE INTRACORON ONE ×2 (08:25→08:30)
[2022-05-21] MEDS ORDERED: CLOPIDOGREL 75 MG TAB PO ONE (08:25)
[2022-05-21] MEDS ORDERED: ONDANSETRON 4 MG/2 ML VIAL ONE (08:39)
[2022-05-21] MEDS ORDERED: ONDANSETRON 4 MG/2 ML VIAL IVP ONE (08:40)
[2022-05-21] MEDS ORDERED: IOPAMIDOL-370 125ML BTL INJ ONE (08:40)
[2022-05-21] MEDS ORDERED: IOPAMIDOL-370 100ML BTL INJ ONE (08:44)
--- NOTE | 2022-05-21 08:55 | P.PRCINT ---
Percutaneous Coronary Int. - Percutaneous Coronary Intervention Percutaneous Coronary Intervention: PROCEDURES PERFORMED: Left heart catheterization, bilateral coronary angiography, iFR LAD, PCI LAD with 2.25 x 38mm Xience AGUSTO, post dilated with a 2.5 NC balloon INDICATION: [place] Heart Association class 3-4 angina with minimal exertion, CAD HISTORY: Patient is pleasant 61-year-old female with history of CAD status post PCI of circumflex with a residual 70% LAD stenosis. She has been having angina with minimal exertion such as walking around the room despite antianginal medication. Therefore left heart catheterization with possible PCI was recommended. CONSENT:I have discussed the risks, benefits and alternative therapies for the above-mentioned procedure and for both sedation/analgesia as well as necessary blood product administration, if indicated, as they pertain to this patient. The patient has indicated understanding and acceptance of the risks and procedures discussed. PROCEDURE: After the risks, benefits and alternatives of the above mentioned procedure explained in detail with the patient, informed consent was obtained. Patient was taken to the catheterization lab and prepped and draped in usual fashion. 1% lidocaine was used to anesthetize the right radial artery. A 6- Greek sheath was placed in the right radial artery using modified Seldinger technique. Right coronary angiography was performed with a 5-Greek JR5 catheter in various views. A 5-Greek FR5 catheter was inserted into the left ventricle and pressure measurements were obtained. Patient did have some spasm of the right radial site. This was improved with sedation and vasodilators. A 6-Greek CLS 3.0 guide was used to engage the left main. Angiography was performed which did show 70% proximal mid LAD stenosis. Therefore iFR was recommended. Heparin was given. A 0.014 pressure wire was advanced into the left main and normalized. He was then advanced 1 cm distal to the long lesion and iFR was performed and was abnormal at 0.73. Therefore the decision was made to perform PCI of LAD. Predilation was performed with a 2.0 x 15 mm noncompliant and then a 2.25 x 15 mm noncompliant balloon. Next a 2.25 x 38 mm Xience AGUSTO was placed in the proximal to mid LAD. The stent was postdilated with a 2.5 noncompliant balloon. Final angiograms were performed. Preintervention there was 70% long stenosis with BLAKE 3 flow and post intervention there was less than 10% stenosis with BLAKE 3 flow. The right radial sheath was removed and a TR band was placed with hemostasis achieved. The patient tolerated the procedure well. Patient was transported back to the post catheterization holding area in stable condition. Conscious Sedation: Patient was monitored under the direct supervision of vision of myself for conscious sedation using Versed and fentanyl for a total duration of 61 minutes HEMODYNAMICS: Aorta: 105/45 LV: 103/2, LVEDP 7 SELECTIVE CORONARY ARTERIOGRAPHY: LEFT MAIN: The left main is a large caliber vessel which bifurcates into the LAD and circumflex. There is 20% left main stenosis LEFT ANTERIOR DESCENDING CORONARY ARTERY: LAD is a large caliber vessel which wraps around to the apex. There is diffuse disease. There is a long 50% proximal and at worst 70% proximal and mid LAD stenosis. Otherwise there is diffuse mid to distal 30-40% stenosis. LEFT CIRCUMFLEX CORONARY ARTERY: Left circumflex is a moderate caliber vessel. There is a mid circumflex 40% stenosis and patent stents in the distal circumflex/OM 2. RIGHT CORONARY ARTERY: The right coronary artery is a moderate caliber vessel which gives off a PDA and PLV branch and is the dominant vessel. There is diffuse 40-50% proximal mid RCA stenosis. FINAL IMPRESSION: 1. Diffuse CAD as described above including 20% left main, 70% mid LAD, 40% circumflex, 40-50% RCA stenosis. 2. iFR abnormal LAD at 0.73 3. S/p PCI LAD with 2.25 x 38mm Xience AGUSTO, post dilated with a 2.5 NC balloon 4. Normal left sided filling pressures PLAN: 1. Aggressive risk factor modification per most recent ACC/AHA guidelines. 2. Continue dual antiplatelets with aspirin and Plavix for minimum of 6 months.
[2022-05-21 09:11] LABS: Glucose,Whole Blood 127 mg/dL (70-110)
[2022-05-21] MEDS ORDERED: Insulin Aspart (For Pump) 100 UNIT/ML VIAL SQ-PUMP SCH (09:15)
[2022-05-21] MEDS ORDERED: MAG HYDROX/AL HYDROX/SIMETH 30 ML CUP PO PRN (09:15)
[2022-05-21] MEDS ORDERED: ZOLPIDEM 5 MG TAB PO PRN (09:15)
[2022-05-21] MEDS ORDERED: ATROPINE SULFATE 0.1 MG/ML 10ML SYRINGE IV PRN (09:15)
[2022-05-21] MEDS ORDERED: ONDANSETRON 4 MG/2 ML VIAL IVP STA (09:19)
[2022-05-21] MEDS ORDERED: LEVOTHYROXINE 100 MCG TAB PO SCH (10:30)
[2022-05-21 12:20] VITALS: BP 118/61
[2022-05-21 13:13] VITALS: PULSE 66
[2022-05-21] MEDS ORDERED: PANTOPRAZOLE 40 MG TABLET PO SCH (17:30)
[2022-05-21] MEDS ORDERED: MELATONIN 5 MG TABLET PO SCH (21:00)
[2022-05-21] MEDS ORDERED: METOPROLOL TARTRATE 12.5 MG TAB PO SCH (21:00)
[2022-05-21] MEDS ORDERED: ATORVASTATIN 80 MG TAB PO SCH (21:00)
[2022-05-22] MEDS ORDERED: ESCITALOPRAM 5 MG TAB PO SCH (09:00)
[2022-05-22] MEDS ORDERED: CLOPIDOGREL 75 MG TAB PO SCH (09:00)
[2022-05-22] MEDS ORDERED: ASPIRIN 81 MG PO SCH (09:00)
== END 2022-05-21 13:49 | disposition home or self-care (01) ==
LOC: CATHCVL 06:00
PROVIDERS: ATTEND Internal Medicine
DX: I25.10 Atherosclerotic heart disease of native coronary artery without angina pectoris (principal); R06.02 Shortness of breath; Z88.0 Allergy status to penicillin; Z88.5 Allergy status to narcotic agent; Z91.048 Other nonmedicinal substance allergy status; Z72.0 Tobacco use; Z79.82 Long term (current) use of aspirin; Z79.899 Other long term (current) drug therapy
CPT/HCPCS: 93458; 93799; 85025; C9600; C1887; C1769 ×2; C1894; C1874; C1725 ×3; J2250; J2405; J2001; J3010; J1644; Q9967 ×2

== ENCOUNTER 2022-10-08 11:41 | Day surgery (SDC) | payer MEDICARE, OTHER ==
[~2022-10-08 11:41] MED LIST changes: +ALPRAZolam 0.25 MG TAB PO PRN; +ALPRAZolam 0.5 MG TAB PO PRN; +ASPIRIN 325 MG TAB PO PRN; +HEPARIN SODIUM,PORCINE (1 ML) 2,500 UNIT in SODIUM CHLORIDE 0.9% 250 ML IRRIGATION PRN; +HEPARIN SODIUM,PORCINE 10,000 UNIT in SODIUM CHLORIDE 0.9% 1,000 ML IRRIGATION PRN; -LACTATED RINGERS 1,000 ML IV SCH; -LIDOCAINE 1% (10MG/ML) FOR IV START INTRADERMA PRN; +SODIUM CHLORIDE 0.9% 1,000 ML in EMPTY BAG 1 BAG IV ONE; +ZOLPIDEM 5 MG TAB PO PRN
[2022-10-08 12:20] VITALS: RESP 18
[2022-10-08 12:27] LABS: Glucose,Whole Blood 270 mg/dL (70-110)
[2022-10-08] MEDS ORDERED: LIDOCAINE 1% INJ 10MG/ML (20 ML MDV) ONE (15:09)
[2022-10-08] MEDS ORDERED: fentaNYL (PF) 50 MCG/ML 2 ML AMP ONE (15:11)
[2022-10-08] MEDS ORDERED: fentaNYL (PF) 50 MCG/ML 2 ML AMP IVP ONE (15:28)
[2022-10-08] MEDS ORDERED: LIDOCAINE 1% INJ 10MG/ML (20 ML MDV) SQ ONE (15:28)
[2022-10-08] MEDS ORDERED: MIDAZOLAM 2 MG/2 ML VIAL IVP ONE (15:28)
[2022-10-08] MEDS ORDERED: IOPAMIDOL-250 100ML BTL INTRAARTER ONE (15:40)
--- NOTE | 2022-10-08 15:56 | P.PCN ---
Description of Procedure: PROCEDURES PERFORMED: Abdominal angiography with bilateral runoff, ultrasound- guided access INDICATION: [place] class 3 claudication, abnormal lower extremity ultrasound CONSENT:I have discussed the risks, benefits and alternative therapies for the above-mentioned procedure and for both sedation/analgesia as well as necessary blood product administration, if indicated, as they pertain to this patient. The patient has indicated understanding and acceptance of the risks and procedures discussed. PROCEDURE: After the risks, benefits and alternatives of the above mentioned procedure explained in detail with the patient, informed consent was obtained. Patient was taken to the catheterization lab and prepped and draped in usual fashion. 1% lidocaine was used to anesthetize the right femoral area. A 6- Gambian sheath was placed in the femoral artery using modified Seldinger technique and ultrasound-guided axis. A 5-Gambian pigtail catheter was inserted to the abdominal aorta and DSA imaging was obtained. For more definitive evaluation of the ache off of the SFA, a 5-Gambian rim catheter was placed for further imaging of the left SFA Patient tolerated the diagnostic portion well. A right femoral angiogram was performed and showed disease of the right common femoral artery and therefore no closure device was used. The patient tolerated the procedure well. Patient was transported back to the post catheterization holding area in stable condition. Conscious Sedation: Patient was monitored under the direct supervision of vision of myself for conscious sedation using Versed and fentanyl for a total duration of 19 minutes Abdominal aorta: The abdominal aorta has mild calcifcation. Renal arteries are patent. There is no significant dissection or aneurysm. There is no significant stenosis. Right lower extremity: Right common iliac artery: There is no significant stenosis. Right external iliac artery: There is no significant stenosis. Right internal iliac artery: There is no significant stenosis. Right common femoral artery: There is no significant stenosis. Right profunda: There is no significant stenosis. Right SFA: There is no significant stenosis. Right popliteal artery: There is no significant stenosis. Right tibioperoneal trunk: There is no significant stenosis. Right anterior tibial artery: There is no significant stenosis. Right posterior tibial artery: There is no significant stenosis. Right peroneal artery: There is no significant stenosis. Left lower extremity: Left common iliac artery: There is no significant stenosis. Left external iliac artery: There is no significant stenosis. Left internal iliac artery: There is no significant stenosis. Left common femoral artery: There is no significant stenosis. Left profunda: There is no significant stenosis. Left SFA: There is 100% left SFA stenosis at the ostium of the SFA Left popliteal artery: There is no significant stenosis. Left tibioperoneal trunk: There is no significant stenosis. Left anterior tibial artery: There is no significant stenosis. Left posterior tibial artery: There is no significant stenosis. Left peroneal artery: There is no significant stenosis. FINAL IMPRESSION: 1. Peripheral arterial disease as described above with 100% left SFA stenosis at the origin of the left SFA. PLAN: 1. Aggressive risk factor modification per most recent ACC/AHA guidelines. 2. Continue with medical therapy. If intervention recommended, does not appear to be good peripheral candidate and would likely require surgical bypass. Tobacco cessation.
[2022-10-08] MEDS ORDERED: NALOXONE 0.4 MG/ML 1 ML VIAL IVP PRN (16:06)
[2022-10-08] MEDS ORDERED: SODIUM CHLORIDE 0.9% 1,000 ML in EMPTY BAG 1 BAG IV SCH (16:15)
[2022-10-08 17:09] LABS: Glucose,Whole Blood 115 mg/dL (70-110)
[2022-10-08 20:39] LABS: Glucose,Whole Blood 190 mg/dL (70-110)
[2022-10-08 20:58] VITALS: TEMP 97.5
[2022-10-08 21:02] VITALS: BP 123/65; PULSE 75
--- NOTE | 2022-10-10 18:16 | IR ---
EXAMINATION TYPE: IR angio abdominal w runoff DATE OF EXAM: 10/08/2022 COMPARISON: NONE HISTORY: Peripheral vascular disease, 1.7 minutes fluoroscopy time, total DAP 15.5 Gycm2. Fluoroscopy was provided to the referring clinician.
== END 2022-10-08 21:30 | disposition home or self-care (01) ==
LOC: CATHCVL 11:41 → 6NMEDSUR 15:48 → CATHCVL 21:30
PROVIDERS: ATTEND Internal Medicine
DX: E10.51 Type 1 diabetes mellitus with diabetic peripheral angiopathy without gangrene (principal); I70.202 Unspecified atherosclerosis of native arteries of extremities, left leg; E78.5 Hyperlipidemia, unspecified; E03.9 Hypothyroidism, unspecified; F17.210 Nicotine dependence, cigarettes, uncomplicated; Z82.49 Family history of ischemic heart disease and other diseases of the circulatory system; Z79.82 Long term (current) use of aspirin; Z79.890 Hormone replacement therapy; Z79.02 Long term (current) use of antithrombotics/antiplatelets; Z88.0 Allergy status to penicillin; Z91.048 Other nonmedicinal substance allergy status; Z79.899 Other long term (current) drug therapy; Z88.5 Allergy status to narcotic agent
CPT/HCPCS: 36247; 36248; 75625; 75716; 76937; C1769 ×3; C1894; J2250; J2001; J3010; Q9966; 36246

== ENCOUNTER 2023-05-23 05:49 | Inpatient (IN) | payer MEDICARE ==
[2023-05-23] MEDS: ONDANSETRON 4 MG/2 ML VIAL IVP ONE (06:23)
[2023-05-23] MEDS: LACTATED RINGERS 1,000 ML IV ONE ×4 (06:23→10:47)
[2023-05-23] MEDS: DEXAMETHASONE SOD PHOSPHATE 4 MG/ML 1 ML VIAL IV ONE (06:23)
[2023-05-23 06:41] LABS: Glucose,Whole Blood 278 mg/dL (70-110)
[2023-05-23] MEDS: MIDAZOLAM 2 MG/2 ML VIAL IVP ONE (07:00)
[2023-05-23] MEDS ORDERED: MIDAZOLAM 2 MG/2 ML VIAL IV PRN (07:00)
[2023-05-23] MEDS: HEPARIN SODIUM,PORCINE 10,000 UNIT in SODIUM CHLORIDE 0.9% 1,000 ML IRRIGATION ONE ×2 (07:35→08:10)
[2023-05-23] MEDS: THROMBIN (BOVINE) 5,000 UNIT VIAL TOPICAL ONE (07:35)
[2023-05-23] MEDS: ceFAZolin 1,000 MG VIAL IRRIGATION ONE (08:12)
[2023-05-23 08:37] LABS: African American GFR (CKD) >90 (>60 ml/min/1.73 sqM); Anion Gap 9 mmol/L; Blood Urea Nitrogen 16 mg/dL (7-17); Calcium 8.2 mg/dL (8.4-10.2); Carbon Dioxide 20 mmol/L (22-30); Chloride 110 mmol/L (98-107); Glucose 162 mg/dL (74-99); Non-African American GFR(CKD) >90 (>60 ml/min/1.73 sqM); Potassium 4.7 mmol/L (3.5-5.1); Sodium 139 mmol/L (137-145)
[2023-05-23 11:13] LABS: Glucose,Whole Blood 159 mg/dL (70-110)
[2023-05-23] MEDS ORDERED: ACETAMINOPHEN TAB 325 MG TAB PO PRN (11:55)
--- NOTE | 2023-05-23 11:58 | P.ANPRN ---
Procedure Note - Anesthesia - Invasive Line Left Arterial Line Time Out Performed: Yes Date of Procedure: 05/23/23 Location of Patient: PreOp Preparation: Sterile Prep, Sterile Dressing Arterial Line Location: Radial Ultrasound Used: Yes Purpose - Visualization and Identification of Vasculature: Yes Narrative: Invasive line placement per sterile protocol utilized. Informed consent obtained from the patient. Procedure was performed under complete aseptic precautions. The left wrist is slightly extended and placed on a roll of cloth. Radial artery palpated and appeared to have a intact collateral circulation. Front of the wrist was cleaned with ChloraPrep. It was draped and 2 mL of 1% lidocaine was infiltrated and ability into the front of the wrist. Ultrasound used for real-time needle guidance. A 20-gauge two and half inch Arrow arterial catheter was inserted and a bright red blood/back was noticed. It was connected to the pressure monitoring line and the flashback was confirmed. The line was sutured into the skin. Tegaderm dressing was applied. Patient tolerated the procedure very well with no apparent complications.
[2023-05-23] MEDS: fentaNYL (PF) 50 MCG/ML 2 ML AMP IV PRN (12:19)
[2023-05-23 12:39] LABS: Glucose,Whole Blood 143 mg/dL (70-110)
[2023-05-23] MEDS: LACTATED RINGERS 1,000 ML IV SCH (14:23)
[2023-05-23] MEDS: SCOPOLAMINE 1 MG/72 HR PATCH TRANSDERM ONE (14:23)
--- NOTE | 2023-05-23 15:18 | P.OP ---
Date of Procedure: 05/23/23 Preoperative Diagnosis: Left lower extremity claudication [place] 3 Left SFA occlusion Postoperative Diagnosis: same Procedure(s) Performed: Left femoral popliteal artery bypass with PTFE graft Left popliteal artery endarterectomy Anesthesia: BUCK Surgeon: Akhil Harris Estimated Blood Loss (ml): 150 Pathology: none sent Condition: stable Disposition: PACU Indications for Procedure: 62 year old female with history of claudication on the left with previous workup and angiogram demonstrating flush occlusion of the SFA with reconstitution at the above knee popliteal artery. She presents today for elective left femoral- popliteal artery bypass. Description of Procedure: After written and informed consent was obtained from the patient and all risks, benefits and complications were described the patient was brought to the operative suite and laid in a supine position after spinal was performed per the anesthesiologist. The area of the abdomen, groins and left lower extremity were prepped and draped in the usual sterile fashion. Timeout was performed in normal fashion antibiotics were administered prior to incision. A oblique incision was created utilizing a 10 blade scalpel overlying the common femoral artery. Dissection was carried down to the femoral artery with electrocautery. Meticulous dissection was carried in a circumferential manner around the common femoral artery. The artery was then controlled with Vesseloops. Patient was then administered heparin and followed with serial ACT's and redosed as needed to maintain an ACT above 200. Proximal distal control was then clamped and arteriotomy was created with 11 blade scalpel and extended with Agarwal scissors. Good pulsatile blood flow was noted from the proximal aspect of the common femoral artery. Backbleeding from the profundus femoris was brisk. A vertical incision was then created just medial to the thigh above the knee with a 10 blade scalpel and dissection was carried down with electrocautery through the fascia to the popliteal artery. The artery was then dissected free in a circumferential manner both proximally and distally and controlled with Vessel-loops. A 6mm [place] graft was then tunneled between incisions in usual fashion and patient was given heparin and followed with ACTs and maintained at levels above 250. Proximal and distal clamp was placed at the popliteal artery and arteriotomy created with an 11 blade scalpel and extended with Agarwal scissors. There was brisk back bleeding from the distal aspect but none proximally with some plaque noted which was removed with a [place]. Once endarterectomy was completed the distal flaps were sutured down with 7-0 Prolene suture. Once good distal zone was noted attention was placed proximally at the femoral artery for the proximal anastomosis. The common femoral artery was then clamped proximally and distally. Arteriotomy was created at the common femoral artery and then extended with Agarwal Boudreaux scissors. Good pulsatile blood flow was noted when proximal control was released. The graft was then spatulated and an end to side anastomosis was created with 6-0 Prolene suture in a running fashion. Good pulse was noted in the graft. The distal aspect at the popliteal artery was then measured and cut to appropriate length and spatulated. An end to side anastomosis was then created with 6-0 Prolene suture in a running fashion. One completed control was released and good pulse was noted throughout the graft and distally. Once completed all incisions were then closed in a multilayer fashion. Skin was cleansed and Prevena dressing was placed at the groin and 4x4 and tagaderm for the thigh incision. Patient tolerated the procedure well and was sent to the PACU for recovery. The patient had good capillary refill at the conclusion of the procedure and a palpable DP and PT pulse.
[2023-05-23] MEDS: HYDROmorphone 0.5 MG/0.5 ML SYRINGE IVP PRN (15:29)
[2023-05-23] MEDS: CLOPIDOGREL 75 MG TAB PO SCH (15:29)
[2023-05-23] MEDS: LEVOTHYROXINE 100 MCG TAB PO SCH (15:29)
[2023-05-23] MEDS: ASPIRIN 81 MG PO SCH (15:29)
[2023-05-23 16:16] LABS: Glucose,Whole Blood 99 mg/dL (70-110)
[2023-05-23] MEDS ORDERED: INSPUCOR MISCELLANE PRN (17:23)
[2023-05-23] MEDS ORDERED: INSULIN ASPART (NovoLOG) 100 UNIT/ML VIAL SQ PRN (17:23)
[2023-05-23] MEDS: Insulin Aspart (For Pump) 100 UNIT/ML VIAL SQ-PUMP SCH (17:53)
[2023-05-23] MEDS: HYDROcodone/APAP 5-325MG 1 EACH TAB PO PRN (18:13)
[2023-05-23] MEDS: ESCITALOPRAM 5 MG TAB PO SCH (20:01)
[2023-05-23] MEDS: METOPROLOL TARTRATE 12.5 MG TAB PO SCH (20:01)
[2023-05-23] MEDS: ATORVASTATIN 80 MG TAB PO SCH (20:01)
[2023-05-23] MEDS: MELATONIN 5 MG TABLET PO SCH (20:02)
[2023-05-23 20:04] LABS: Glucose,Whole Blood 172 mg/dL (70-110)
[2023-05-23] MEDS: INSPUCOR MISCELLANE SCH (20:11)
[2023-05-24 02:16] LABS: Glucose,Whole Blood 172 mg/dL (70-110)
[2023-05-24 06:09] LABS: Glucose,Whole Blood 166 mg/dL (70-110)
[2023-05-24] MEDS: PANTOPRAZOLE 40 MG TABLET PO SCH (06:34)
[2023-05-24 07:42] LABS: Anisocytosis Slight; Basophils % (A) 0 %; Eosinophils % (A) 0 %; HCT 30.3 % (34.0-46.0); HGB 9.5 gm/dL (11.4-16.0); Hypochromasia Slight; Lymphocytes # (A) 1.9 k/uL (1.0-4.8); Lymphocytes % (A) 19 %; MCH 24.6 pg (25.0-35.0); MCHC 31.4 g/dL (31.0-37.0); MCV 78.2 fL (80.0-100.0); Mean Platelet Volume 8.9; Microcytosis Slight; Monocytes # (A) 0.7 k/uL (0-1.0); Monocytes % (A) 7 %; Neutrophils # (A) 7.1 k/uL (1.3-7.7); Neutrophils % (A) 72 %; Platelet Count 288 k/uL (150-450); RBC 3.88 m/uL (3.80-5.40); RDW 18.8 % (11.5-15.5); WBC 9.9 k/uL (3.8-10.6)
[2023-05-24 08:07] LABS: ALT 24 U/L (4-34); AST 26 U/L (14-36); African American GFR (CKD) >90 (>60 ml/min/1.73 sqM); Alkaline Phosphatase 99 U/L (38-126); Anion Gap 3 mmol/L; Blood Urea Nitrogen 10 mg/dL (7-17); Calcium 8.5 mg/dL (8.4-10.2); Carbon Dioxide 26 mmol/L (22-30); Chloride 104 mmol/L (98-107); Glucose 134 mg/dL (74-99); Non-African American GFR(CKD) >90 (>60 ml/min/1.73 sqM); Potassium 3.9 mmol/L (3.5-5.1); Sodium 133 mmol/L (137-145); Total Bilirubin 0.8 mg/dL (0.2-1.3); Total Protein 5.4 g/dL (6.3-8.2)
--- NOTE | 2023-05-24 09:13 | P.CONS ---
History of Present Illness - Reason for Consult Consult date: 05/24/23 Medical management - History of Present Illness This is a 62-year-old female patient of Dr. Wallace who presented for an elective left tomorrow popliteal artery bypass with left popliteal artery endarterectomy with Dr. Harris on 05/23/2023. Patient is past medical history of ongoing nicotine dependence, diabetes mellitus, GERD, hyperlipidemia, thyroid disorder, celiac disease, heart cath with stents. Patient is currently postop day 1. Patient is resting comfortably in bed complaining of some nausea current vital signs temp 98.9, creatinine 3, respiratory rate 18, blood pressure 120/60 with pulse is 97% on room air. white blood cell 9.9, hemoglobin 9.5. At this time patient denies chest pain or shortness breath. Patient denies nausea vomiting or diarrhea. PT OT service Consulted Patient denies chest pain or shortness breath. Review of Systems Please refer to HPI otherwise unremarkable Past Medical History Past Medical History: Diabetes Mellitus, GERD/Reflux, Hyperlipidemia, Myocardial Infarction ([place]), Sleep Apnea/CPAP/BIPAP, Thyroid Disorder, Vascular Disorder Additional Past Medical History / Comment(s): See Dr Villalobos's H&P. Celiac Disease. Uses CPAP. seasonal allergies, pain to left leg with ambulation, type 1 diabetes anemia, Last Myocardial Infarction Date:: 10/01/20 History of Any Multi-Drug Resistant Organisms: None Reported Past Surgical History: Section, Heart Catheterization With Stent, Hysterectomy Additional Past Surgical History / Comment(s): Section X2, numerous pilonidal cysts removed. Past Anesthesia/Blood Transfusion Reactions: No Reported Reaction Date of Last Stent Placement:: 10/01/20 Smoking Status: Current every day smoker - Past Family History Daughter(s) Family Medical History: Cancer Additional Family Medical History / Comment(s): Neuroendocrine tumors. Medications and Allergies Home Medications Medication Instructions Recorded Confirmed Type Aspirin 81 mg PO DAILY chew 10/04/20 05/23/23 Rx Atorvastatin [Lipitor] 80 mg PO HS 05/20/22 05/23/23 History Escitalopram [Lexapro] 5 mg PO HS 05/20/22 05/23/23 History Insulin Aspart (For Pump) [NovoLOG 0.01 unit SQ-PUMP CONTINUOUS 05/20/22 05/23/23 History (For Pump)] Levothyroxine Sodium 200 mcg PO MOTUWETHFRSA 05/20/22 05/23/23 History Melatonin [Melatonin ER] 10 mg PO HS 05/20/22 05/23/23 History Metoprolol Tartrate 12.5 mg PO BID 05/20/22 05/23/23 History Omeprazole 20 mg PO BID 05/20/22 05/23/23 History Clopidogrel [Plavix] 75 mg PO DAILY #90 tablet 05/21/22 05/18/23 Rx Unk Otc Allergy 24h 1 tab PO DAILY 10/01/22 05/23/23 History Iron (Unk) 1 tab PO DAILY 05/18/23 05/18/23 History Magnesium(Unk) 1 tab PO DAILY 05/18/23 05/18/23 History Multivitamins, Thera [Multivitamin 1 tab PO DAILY 05/18/23 05/18/23 History (formulary)] Vit D(Unk) 1 tab PO DAILY 05/18/23 05/18/23 History Allergies Allergy/AdvReac Type Severity Reaction Status Date / Time adhesive tape Allergy Rash/Hives Verified 05/18/23 13:38 codeine Allergy "feel like Verified 05/18/23 13:38 I'm speed" Penicillins Allergy Rash/Hives Verified 05/18/23 13:38 Physical Exam Vitals: Vital Signs Temp Pulse Resp BP Pulse Ox 05/24/23 04:30 98.9 F 93 18 120/60 97 05/24/23 02:00 86 18 05/24/23 00:00 86 18 101/52 97 05/23/23 20:00 98.2 F 86 18 117/62 99 05/23/23 16:00 60 18 145/69 96 05/23/23 13:45 53 L 16 128/59 96 05/23/23 13:30 53 L 16 115/59 100 05/23/23 13:15 60 16 149/67 100 05/23/23 13:00 57 L 16 140/63 99 05/23/23 12:45 56 L 16 120/60 99 05/23/23 12:30 59 L 16 130/60 99 05/23/23 12:15 64 16 133/61 100 05/23/23 12:00 64 16 139/63 99 05/23/23 11:45 64 169/71 99 05/23/23 11:30 55 L 16 170/72 99 05/23/23 11:15 50 L 16 133/67 98 05/23/23 11:00 97.2 F L 87 16 139/65 96 Intake and Output 05/23/23 05/24/23 05/24/23 22:59 06:59 14:59 Output Total 900 800 Balance -900 -800 Output: Urine 900 800 Other: Voiding Method Indwelling Catheter Indwelling Catheter Head normocephalic Neck supple Lungs clear to auscultation bilaterally no wheezing or crackles Heart regular rate and rhythm S1-S2, no rub or gallop Abdomen is soft nontender nondistended positive bowel sounds no hepatosplenomeg sadia Extremities no edema Neuro alert and orientated to 3 Results CBC & Chem 7: 05/24/23 07:21 05/24/23 07:21 Labs: Abnormal Lab Results - Last 24 Hours (Table) 05/23/23 05/23/23 05/23/23 Range/Units 11:12 12:38 20:03 Hgb (11.4-16.0) gm/dL Hct (34.0-46.0) % MCV (80.0-100.0) fL MCH (25.0-35.0) pg RDW (11.5-15.5) % Sodium (137-145) mmol/L Glucose (74-99) mg/dL POC Glucose (mg/dL) 159 H 143 H 172 H (70-110) mg/dL Total Protein (6.3-8.2) g/dL Albumin (3.5-5.0) g/dL 05/24/23 05/24/23 05/24/23 Range/Units 02:14 06:05 07:21 Hgb 9.5 L (11.4-16.0) gm/dL Hct 30.3 L (34.0-46.0) % MCV 78.2 L (80.0-100.0) fL MCH 24.6 L (25.0-35.0) pg RDW 18.8 H (11.5-15.5) % Sodium (137-145) mmol/L Glucose (74-99) mg/dL POC Glucose (mg/dL) 172 H 166 H (70-110) mg/dL Total Protein (6.3-8.2) g/dL Albumin (3.5-5.0) g/dL 05/24/23 Range/Units 07:21 Hgb (11.4-16.0) gm/dL Hct (34.0-46.0) % MCV (80.0-100.0) fL MCH (25.0-35.0) pg RDW (11.5-15.5) % Sodium 133 L (137-145) mmol/L Glucose 134 H (74-99) mg/dL POC Glucose (mg/dL) (70-110) mg/dL Total Protein 5.4 L (6.3-8.2) g/dL Albumin 3.0 L (3.5-5.0) g/dL Assessment and Plan Assessment: 1. Status post left femoral-popliteal artery bypass with left popliteal artery endarterectomy with Dr. Harris on 05/23/2023 2. History of diabetes mellitus 3. History of coronary artery disease with previous stent placement 4. History of hyperthyroidism 5. History of ongoing nicotine dependence patient declined nicotine patch at this time. Patient educated greater than 3 minutes on smoking sensation Thank you for this consultation we will continue to follow patient closely throughout stay Repeat labs ordered Time with Patient: Greater than 30 (Greater than 60% of the total time spent in counseling and coordination of care)
[2023-05-24] MEDS: MULTIVITAMINS, THERA 1 EACH TAB PO SCH (09:34)
[2023-05-24] MEDS: ONDANSETRON 4 MG/2 ML VIAL IVP PRN (09:34)
--- NOTE | 2023-05-24 10:32 | P.CONS ---
History of Present Illness - Reason for Consult Consult date: 05/23/23 - History of Present Illness Sanjana Deleon, is a 62-year-old female who was admitted to [facility] by Dr. Harris due to severe left lower extremity pain and claudication, patient underwent left femoral popliteal bypass graft surgery today. Medical consultation was requested for management while hospitalized. Past medical history is significant for history of coronary artery disease with history of angioplasty in the past, history of hypertension, history of hyperlipidemia, history of hypothyroidism, history of peripheral arterial disease, history of congestive heart failure, history of depression, history of insulin-dependent diabetes mellitus, and history of osteoarthritis. On review of systems patient is complaining of left lower extremity pain post surgery, otherwise she denies any complaints there is no fever or chills no headache or dizziness no chest pain no shortness of breath no cough no nausea or vomiting no abdominal pain no diarrhea no blood in the stools no burning with urination no frequency or urgency and no hematuria. Past Medical History Past Medical History: Diabetes Mellitus, GERD/Reflux, Hyperlipidemia, Myocardial Infarction ([place]), Sleep Apnea/CPAP/BIPAP, Thyroid Disorder, Vascular Disorder Additional Past Medical History / Comment(s): See Dr Villalobos's H&P. Celiac Disease. Uses CPAP. seasonal allergies, pain to left leg with ambulation, type 1 diabetes anemia, Last Myocardial Infarction Date:: 10/01/20 History of Any Multi-Drug Resistant Organisms: None Reported Past Surgical History: Section, Heart Catheterization With Stent, Hysterectomy Additional Past Surgical History / Comment(s): Section X2, numerous pilonidal cysts removed. Past Anesthesia/Blood Transfusion Reactions: No Reported Reaction Date of Last Stent Placement:: 10/01/20 Smoking Status: Current every day smoker - Past Family History Daughter(s) Family Medical History: Cancer Additional Family Medical History / Comment(s): Neuroendocrine tumors. Medications and Allergies Home Medications Medication Instructions Recorded Confirmed Type Aspirin 81 mg PO DAILY chew 10/04/20 05/23/23 Rx Atorvastatin [Lipitor] 80 mg PO HS 05/20/22 05/23/23 History Escitalopram [Lexapro] 5 mg PO HS 05/20/22 05/23/23 History Insulin Aspart (For Pump) [NovoLOG 0.01 unit SQ-PUMP CONTINUOUS 05/20/22 05/23/23 History (For Pump)] Levothyroxine Sodium 200 mcg PO MOTUWETHFRSA 05/20/22 05/23/23 History Melatonin [Melatonin ER] 10 mg PO HS 05/20/22 05/23/23 History Metoprolol Tartrate 12.5 mg PO BID 05/20/22 05/23/23 History Omeprazole 20 mg PO BID 05/20/22 05/23/23 History Clopidogrel [Plavix] 75 mg PO DAILY #90 tablet 05/21/22 05/18/23 Rx Unk Otc Allergy 24h 1 tab PO DAILY 10/01/22 05/23/23 History Iron (Unk) 1 tab PO DAILY 05/18/23 05/18/23 History Magnesium(Unk) 1 tab PO DAILY 05/18/23 05/18/23 History Multivitamins, Thera [Multivitamin 1 tab PO DAILY 05/18/23 05/18/23 History (formulary)] Vit D(Unk) 1 tab PO DAILY 05/18/23 05/18/23 History Allergies Allergy/AdvReac Type Severity Reaction Status Date / Time adhesive tape Allergy Rash/Hives Verified 05/18/23 13:38 codeine Allergy "feel like Verified 05/18/23 13:38 I'm speed" Penicillins Allergy Rash/Hives Verified 05/18/23 13:38 Physical Exam Vitals: Vital Signs Temp Pulse Resp BP Pulse Ox 05/23/23 13:45 53 L 16 128/59 96 05/23/23 13:30 53 L 16 115/59 100 05/23/23 13:15 60 16 149/67 100 05/23/23 13:00 57 L 16 140/63 99 05/23/23 12:45 56 L 16 120/60 99 05/23/23 12:30 59 L 16 130/60 99 05/23/23 12:15 64 16 133/61 100 05/23/23 12:00 64 16 139/63 99 05/23/23 11:45 64 169/71 99 05/23/23 11:30 55 L 16 170/72 99 05/23/23 11:15 50 L 16 133/67 98 05/23/23 11:00 97.2 F L 87 16 139/65 96 05/23/23 06:27 96.9 F L 76 18 131/61 98 Intake and Output 05/22/23 05/23/23 05/23/23 22:59 06:59 14:59 Intake Total 500 1851 Output Total 400 Balance 500 1451 Intake: IV 500 1851 Output: Urine 250 Estimated Blood Loss 150 Other: Weight 67.9 kg In general patient is alert and oriented x 3 in no distress HEENT head normocephalic and atraumatic Neck is supple no JVD no goiter no lymphadenopathy no carotid bruit Chest examination is clear to auscultation no crackles no wheezing Cardiac exam reveals regular heart sounds S1 and S2 no gallops no murmurs Abdomen is soft nontender no organomegaly with normal bowel sounds Extremity exam reveals no edema no cyanosis or clubbing Neurological examination reveals no gross focal deficits Results CBC & Chem 7: 05/24/23 07:21 05/24/23 07:21 Labs: Abnormal Lab Results - Last 24 Hours (Table) 05/23/23 05/23/23 05/23/23 Range/Units 06:39 07:54 11:12 Chloride 110 H (98-107) mmol/L Carbon Dioxide 20 L (22-30) mmol/L Glucose 162 H (74-99) mg/dL POC Glucose (mg/dL) 278 H 159 H (70-110) mg/dL Calcium 8.2 L (8.4-10.2) mg/dL 05/23/23 Range/Units 12:38 Chloride (98-107) mmol/L Carbon Dioxide (22-30) mmol/L Glucose (74-99) mg/dL POC Glucose (mg/dL) 143 H (70-110) mg/dL Calcium (8.4-10.2) mg/dL Assessment and Plan Plan: 1. Status post left femoral-popliteal artery bypass with left popliteal artery endarterectomy with Dr. Harris on 05/23/2023 2. History of diabetes mellitus 3. History of coronary artery disease with previous stent placement 4. History of hyperthyroidism 5. History of ongoing nicotine dependence patient declined nicotine patch at this time. Patient educated greater than 3 minutes on smoking sensation
[2023-05-24 11:38] LABS: Glucose,Whole Blood 219 mg/dL (70-110)
--- NOTE | 2023-05-24 12:56 | P.PN ---
Subjective Progress Note Date: 05/24/23 Principal diagnosis: Left lower extremity femoral popliteal artery bypass with left popliteal artery endarterectomy Patient is seen and examined today as a follow-up. She is postop day #1 for left femoral-popliteal artery bypass graft and left popliteal endarterectomy. Coburn catheter was discontinued. She has been up and only ambulated to the bedside chair. She has voided. Tolerating her diet. States she is having quite a bit of pain in her left groin. Pain down her left lower extremity seems somewhat improved. WBC 9.9 hemoglobin 9.5 platelet count 288,000 sodium 133 potassium 3.9 BUN 10 creatinine 0.69 glucose 134 Objective - Vital Signs Vital signs: Vital Signs Temp 99.9 F H 05/24/23 08:00 Pulse 92 05/24/23 08:00 Resp 18 05/24/23 08:00 BP 121/58 05/24/23 08:00 Pulse Ox 97 05/24/23 08:00 FiO2 Intake & Output 05/23/23 05/24/23 05/24/23 18:59 06:59 18:59 Intake Total 1851 Output Total 400 1700 Balance 1451 -1700 Intake: IV 1851 Output: Urine 250 1700 Estimated Blood Loss 150 Other: Voiding Method Indwelling Catheter Indwelling Catheter - Exam General appearance: The patient is alert, oriented, appears in no acute distress. HET: Head is normocephalic and atraumatic. Pupils are equal and reactive. Neck: Supple. Heart: Regular. Lungs: Equal expansion, normal respiratory effort. Abdomen: Soft, nontender, nondistended. Extremities: Normal skin color and turgor. Left lower extremity warm to touch with good capillary refill and multiphasic DP and PT signal. Left groin with Prevena dressing in place with good suction. Neurological: No focal deficits. Strength and sensation are grossly intact. - Labs CBC & Chem 7: 05/24/23 07:21 05/24/23 07:21 Labs: Abnormal Lab Results - Last 24 Hours (Table) 05/23/23 05/24/23 05/24/23 Range/Units 20:03 02:14 06:05 Hgb (11.4-16.0) gm/dL Hct (34.0-46.0) % MCV (80.0-100.0) fL MCH (25.0-35.0) pg RDW (11.5-15.5) % Sodium (137-145) mmol/L Glucose (74-99) mg/dL POC Glucose (mg/dL) 172 H 172 H 166 H (70-110) mg/dL Total Protein (6.3-8.2) g/dL Albumin (3.5-5.0) g/dL 05/24/23 05/24/23 05/24/23 Range/Units 07:21 07:21 11:36 Hgb 9.5 L (11.4-16.0) gm/dL Hct 30.3 L (34.0-46.0) % MCV 78.2 L (80.0-100.0) fL MCH 24.6 L (25.0-35.0) pg RDW 18.8 H (11.5-15.5) % Sodium 133 L (137-145) mmol/L Glucose 134 H (74-99) mg/dL POC Glucose (mg/dL) 219 H (70-110) mg/dL Total Protein 5.4 L (6.3-8.2) g/dL Albumin 3.0 L (3.5-5.0) g/dL Assessment and Plan Assessment: 1. Postop day #1 for the left femoral-popliteal artery bypass graft and left popliteal endarterectomy. 2. Left lower extremity claudication Nance 3, left SFA occlusion 3. Diabetes mellitus 4. History of coronary artery disease 5. Hyperlipidemia 6. Hypothyroid disease 7. Nicotine dependence Plan: 1. Continue pain management 2. Encourage ambulation 3. Consult to physical therapy 4. Continue Plavix 75 mg daily and aspirin 81 mg daily 5. Recommend smoking cessation 6. Anticipate discharge tomorrow The impression and plan of care has been dictated as directed. Dr. Harris I performed a history and examination of this patient, discussed the same with the dictator. I agree with the dictator's note ,documented as a scribe. Any additional findings or plans will be noted.
[2023-05-24 16:23] LABS: Glucose,Whole Blood 187 mg/dL (70-110)
[2023-05-24 20:30] LABS: Glucose,Whole Blood 244 mg/dL (70-110)
[2023-05-25 02:59] LABS: Glucose,Whole Blood 172 mg/dL (70-110)
[2023-05-25 03:44] VITALS: RESP 18
[2023-05-25 06:10] LABS: Glucose,Whole Blood 182 mg/dL (70-110)
--- NOTE | 2023-05-25 09:34 | P.DS ---
Providers Date of admission: 05/23/23 05:49 Expected date of discharge: 05/25/23 Attending physician: Akhil Harris DO Consults: 05/23/23 11:55 Consult Physician Routine Consulting Provider: Ambika Berkowitz Consult Reason/Comments: Medical Management post op fem/pop bypass Do you want consulting provider notified?: Yes Primary care physician: Molly [facility] Course: This is a 62-year-old female with a history of claudication of the left lower extremity with previous workup and angiogram demonstrating flush occlusion of the SFA with reconstitution at the above-knee popliteal artery. She presented on 05/23/2023 for elective femoral popliteal artery bypass. She is postop day #2 for left femoral popliteal artery bypass with PTFE graft and left popliteal artery endarterectomy. Today pain has been better managed. She has been up ambulating yesterday and today with physical therapy without any difficulty. She has a Prevena VAC dressing to her left groin. Left lower extremity warm and pink. Sensorimotor intact. Pain improving. Most of her pain is at the left groin. She denies any shortness of breath, chest pain, abdominal pain, nausea or vomiting. She has been tolerating regular diet voiding well. Exam General appearance: The patient is alert, oriented, appears in no acute distress. HET: Head is normocephalic and atraumatic. Neck: Supple. Heart: Regular. Lungs: Equal expansion, normal respiratory effort. Abdomen: Soft, nontender, nondistended. Extremities: Normal skin color and turgor. Left lower extremity warm to the touch with good capillary refill. Left groin with Dora dressing intact with good suction. Left medial thigh dressing removed, and incision well- approximated. Mild ecchymosis surrounding. No hematoma noted. Neurological: No focal deficits. Strength and sensation are grossly intact. Assessment 1. Postop day #2 for the left femoral-popliteal artery bypass graft and left popliteal endarterectomy. 2. Left lower extremity claudication Jayde 3, left SFA occlusion 3. Diabetes mellitus 4. History of coronary artery disease 5. Hyperlipidemia 6. Hypothyroid disease 7. Nicotine dependence Plan: 1. Continue pain management 2. Encourage ambulation 3. Physical therapy on consultation, patient reportedly is ambulating well 4. Continue Plavix 75 mg daily and aspirin 81 mg daily 5. Recommend smoking cessation, nicotine patch offered to patient. She declined and states she has some at home. 6. Discharge instructions reviewed with patient including Prevena VAC removal. Patient verbalized understanding. Plan for discharge home today. The impression and plan of care has been dictated as directed. Dr. Coburn I performed a history and examination of this patient, discussed the same with the dictator. I agree with the dictator's note ,documented as a scribe. Any additional findings or plans will be noted. Procedures: Procedure(s) Performed: Left femoral popliteal artery bypass with PTFE graft Left popliteal artery endarterectomy Patient Condition at Discharge: Stable Plan - Discharge Summary Discharge Rx Participant: No New Discharge Prescriptions: New Acetaminophen Tab [Tylenol] 650 mg PO Q6HR PRN tab PRN Reason: Pain Scale 1 To 5 HYDROcodone/APAP 5-325MG [[place] 5-325] 1 each PO Q4HR PRN 3 Days #18 tab PRN Reason: Pain Scale 6 To 7 Continue Aspirin 81 mg PO DAILY chew Levothyroxine Sodium 200 mcg PO MOTUWETHFRSA Metoprolol Tartrate 12.5 mg PO BID Atorvastatin [Lipitor] 80 mg PO HS Melatonin [Melatonin ER] 10 mg PO HS Clopidogrel [Plavix] 75 mg PO DAILY #90 tablet Vit D(Unk) 1 tab PO DAILY Magnesium(Unk) 1 tab PO DAILY Insulin Aspart (For Pump) [NovoLOG (For Pump)] 0.01 unit SQ-PUMP CONTINUOUS Omeprazole 20 mg PO BID Escitalopram [Lexapro] 5 mg PO HS Unk Otc Allergy 24h 1 tab PO DAILY Multivitamins, Thera [Multivitamin (formulary)] 1 tab PO DAILY Iron (Unk) 1 tab PO DAILY Discharge Medication List Aspirin 81 mg PO DAILY chew 10/04/20 [Rx] Atorvastatin [Lipitor] 80 mg PO HS 05/20/22 [History] Escitalopram [Lexapro] 5 mg PO HS 05/20/22 [History] Insulin Aspart (For Pump) [NovoLOG (For Pump)] 0.01 unit SQ-PUMP CONTINUOUS 05/20/22 [History] Levothyroxine Sodium 200 mcg PO MOTUWETHFRSA 05/20/22 [History] Melatonin [Melatonin ER] 10 mg PO HS 05/20/22 [History] Metoprolol Tartrate 12.5 mg PO BID 05/20/22 [History] Omeprazole 20 mg PO BID 05/20/22 [History] Clopidogrel [Plavix] 75 mg PO DAILY #90 tablet 05/21/22 [Rx] Unk Otc Allergy 24h 1 tab PO DAILY 10/01/22 [History] Iron (Unk) 1 tab PO DAILY 05/18/23 [History] Magnesium(Unk) 1 tab PO DAILY 05/18/23 [History] Multivitamins, Thera [Multivitamin (formulary)] 1 tab PO DAILY 05/18/23 [History] Vit D(Unk) 1 tab PO DAILY 05/18/23 [History] Acetaminophen Tab [Tylenol] 650 mg PO Q6HR PRN tab 05/25/23 [Rx] HYDROcodone/APAP 5-325MG [[place] 5-325] 1 each PO Q4HR PRN 3 Days #18 tab 05/25/23 [Rx] Follow up Appointment(s)/Referral(s): Molly Wallace MD [Primary Care Provider] - 06/01/23 11:00 am Akhil Harris DO [STAFF PHYSICIAN] - 06/07/23 1:30 pm Patient Instructions/Handouts: Femoropopliteal Bypass (DC) Activity/Diet/Wound Care/Special Instructions: No driving for two weeks Avoid heavy lifting greater than 10 lbs , pushing, pulling, straining, flights of stairs for two weeks Keep Prevena dressing in place until Monday, May 29, 2023 then may remove and throw away ok to shower once Prevena dressing removed, but no baths, pools, soaking in tubs until cleared by surgeon to avoid risk of infection. signs of infection ie: fever, rash, drainage from puncture site, swelling contact doctor or return to ER immediately. Heavy bleeding fromsurgical e site apply firm direct pressure and return to ER. Do not attempt to drive self. low sodium/low fat diet Discharge Disposition: HOME SELF-CARE
--- NOTE | 2023-05-25 10:18 | P.PN ---
Subjective Progress Note Date: 05/24/23 Sanjana Deleon, is a 62-year-old female who was admitted to [facility] by Dr. Harris due to severe left lower extremity pain and claudication, patient underwent left femoral popliteal bypass graft surgery today. Medical consultation was requested for management while hospitalized. Past medical history is significant for history of coronary artery disease with history of angioplasty in the past, history of hypertension, history of hyperlipidemia, history of hypothyroidism, history of peripheral arterial disease, history of congestive heart failure, history of depression, history of insulin-dependent diabetes mellitus, and history of osteoarthritis. On review of systems patient is complaining of left lower extremity pain post surgery, otherwise she denies any complaints there is no fever or chills no headache or dizziness no chest pain no shortness of breath no cough no nausea or vomiting no abdominal pain no diarrhea no blood in the stools no burning with urination no frequency or urgency and no hematuria. Objective - Vital Signs Vital signs: Vital Signs Temp 99.9 F H 05/24/23 08:00 Pulse 92 05/24/23 08:00 Resp 18 05/24/23 08:00 BP 121/58 05/24/23 08:00 Pulse Ox 97 05/24/23 08:00 FiO2 Intake & Output 05/23/23 05/24/23 05/24/23 18:59 06:59 18:59 Intake Total 1851 Output Total 400 1700 Balance 1451 -1700 Intake: IV 1851 Output: Urine 250 1700 Estimated Blood Loss 150 Other: Voiding Method Indwelling Catheter Indwelling Catheter - Exam In general patient is alert and oriented x 3 in no distress HEENT head normocephalic and atraumatic Neck is supple no JVD no goiter no lymphadenopathy no carotid bruit Chest examination is clear to auscultation no crackles no wheezing Cardiac exam reveals regular heart sounds S1 and S2 no gallops no murmurs Abdomen is soft nontender no organomegaly with normal bowel sounds Extremity exam reveals no edema no cyanosis or clubbing Neurological examination reveals no gross focal deficits - Labs CBC & Chem 7: 05/24/23 07:21 05/24/23 07:21 Labs: Abnormal Lab Results - Last 24 Hours (Table) 05/23/23 05/23/23 05/23/23 Range/Units 11:12 12:38 20:03 Hgb (11.4-16.0) gm/dL Hct (34.0-46.0) % MCV (80.0-100.0) fL MCH (25.0-35.0) pg RDW (11.5-15.5) % Sodium (137-145) mmol/L Glucose (74-99) mg/dL POC Glucose (mg/dL) 159 H 143 H 172 H (70-110) mg/dL Total Protein (6.3-8.2) g/dL Albumin (3.5-5.0) g/dL 05/24/23 05/24/23 05/24/23 Range/Units 02:14 06:05 07:21 Hgb 9.5 L (11.4-16.0) gm/dL Hct 30.3 L (34.0-46.0) % MCV 78.2 L (80.0-100.0) fL MCH 24.6 L (25.0-35.0) pg RDW 18.8 H (11.5-15.5) % Sodium (137-145) mmol/L Glucose (74-99) mg/dL POC Glucose (mg/dL) 172 H 166 H (70-110) mg/dL Total Protein (6.3-8.2) g/dL Albumin (3.5-5.0) g/dL 05/24/23 Range/Units 07:21 Hgb (11.4-16.0) gm/dL Hct (34.0-46.0) % MCV (80.0-100.0) fL MCH (25.0-35.0) pg RDW (11.5-15.5) % Sodium 133 L (137-145) mmol/L Glucose 134 H (74-99) mg/dL POC Glucose (mg/dL) (70-110) mg/dL Total Protein 5.4 L (6.3-8.2) g/dL Albumin 3.0 L (3.5-5.0) g/dL Assessment and Plan Plan: 1. Status post left femoral-popliteal artery bypass with left popliteal artery endarterectomy with Dr. Harris on 05/23/2023 2. History of diabetes mellitus 3. History of coronary artery disease with previous stent placement 4. History of hyperthyroidism 5. History of ongoing nicotine dependence patient declined nicotine patch at this time. Patient educated greater than 3 minutes on smoking sensation
[2023-05-25 10:25] LABS: Anisocytosis Slight; Basophils % (A) 0 %; Eosinophils # (A) 0.1 k/uL (0-0.7); Eosinophils % (A) 1 %; HCT 31.3 % (34.0-46.0); HGB 9.7 gm/dL (11.4-16.0); Hypochromasia Moderate; Lymphocytes # (A) 2.5 k/uL (1.0-4.8); Lymphocytes % (A) 22 %; MCH 24.6 pg (25.0-35.0); MCHC 30.9 g/dL (31.0-37.0); MCV 79.6 fL (80.0-100.0); Mean Platelet Volume 9.2; Microcytosis Slight; Monocytes # (A) 1.1 k/uL (0-1.0); Monocytes % (A) 9 %; Neutrophils # (A) 7.5 k/uL (1.3-7.7); Neutrophils % (A) 65 %; Platelet Count 283 k/uL (150-450); RBC 3.93 m/uL (3.80-5.40); RDW 18.7 % (11.5-15.5); WBC 11.5 k/uL (3.8-10.6)
--- NOTE | 2023-05-25 10:32 | P.PN ---
Subjective Progress Note Date: 05/25/23 Sanjana Deleon, is a 62-year-old female who was admitted to [facility] by Dr. Harris due to severe left lower extremity pain and claudication, patient underwent left femoral popliteal bypass graft surgery today. Medical consultation was requested for management while hospitalized. Past medical history is significant for history of coronary artery disease with history of angioplasty in the past, history of hypertension, history of hyperlipidemia, history of hypothyroidism, history of peripheral arterial disease, history of congestive heart failure, history of depression, history of insulin-dependent diabetes mellitus, and history of osteoarthritis. On review of systems patient is complaining of left lower extremity pain post surgery, otherwise she denies any complaints there is no fever or chills no headache or dizziness no chest pain no shortness of breath no cough no nausea or vomiting no abdominal pain no diarrhea no blood in the stools no burning with urination no frequency or urgency and no hematuria. On 05/25/2023 patient was seen and examined the medical floor she is alert and oriented 3 in no apparent distress, there is no fever or chills no headache or dizziness no chest pain no shortness of breath no cough no nausea or vomiting no abdominal pain no diarrhea and no urinary symptoms, pain is well-controlled, plan for vascular surgery is for discharge to home today, patient is medically stable for discharge. Objective - Vital Signs Vital signs: Vital Signs Temp 98.9 F 05/25/23 03:32 Pulse 86 05/25/23 03:32 Resp 18 05/25/23 03:32 BP 109/57 05/25/23 03:32 Pulse Ox 96 05/25/23 03:32 FiO2 Intake & Output 05/24/23 05/25/23 05/25/23 18:59 06:59 18:59 Intake Total 118 Output Total 900 300 Balance -782 -300 Intake: Oral 118 Output: Urine 900 300 Other: Voiding Method Toilet Toilet # Voids 1 - Exam In general patient is alert and oriented x 3 in no distress HEENT head normocephalic and atraumatic Neck is supple no JVD no goiter no lymphadenopathy no carotid bruit Chest examination is clear to auscultation no crackles no wheezing Cardiac exam reveals regular heart sounds S1 and S2 no gallops no murmurs Abdomen is soft nontender no organomegaly with normal bowel sounds Extremity exam reveals no edema no cyanosis or clubbing Neurological examination reveals no gross focal deficits - Labs CBC & Chem 7: 05/25/23 09:16 05/24/23 07:21 Labs: Abnormal Lab Results - Last 24 Hours (Table) 05/24/23 05/24/23 05/24/23 Range/Units 11:36 16:21 20:27 POC Glucose (mg/dL) 219 H 187 H 244 H (70-110) mg/dL 05/25/23 05/25/23 Range/Units 02:57 06:08 POC Glucose (mg/dL) 172 H 182 H (70-110) mg/dL Assessment and Plan Plan: 1. Status post left femoral-popliteal artery bypass with left popliteal artery endarterectomy with Dr. Harris on 05/23/2023 2. History of diabetes mellitus 3. History of coronary artery disease with previous stent placement 4. History of hyperthyroidism 5. History of ongoing nicotine dependence patient declined nicotine patch at this time. Patient educated greater than 3 minutes on smoking sensation
[2023-05-25 10:38] LABS: ALT 22 U/L (4-34); AST 26 U/L (14-36); African American GFR (CKD) >90 (>60 ml/min/1.73 sqM); Albumin 3.2 g/dL (3.5-5.0); Alkaline Phosphatase 119 U/L (38-126); Anion Gap 9 mmol/L; Blood Urea Nitrogen 10 mg/dL (7-17); Calcium 8.9 mg/dL (8.4-10.2); Carbon Dioxide 23 mmol/L (22-30); Chloride 102 mmol/L (98-107); Glucose 152 mg/dL (74-99); Non-African American GFR(CKD) 86 (>60 ml/min/1.73 sqM); Potassium 3.9 mmol/L (3.5-5.1); Sodium 134 mmol/L (137-145); Total Protein 5.9 g/dL (6.3-8.2)
[2023-05-25 10:56] VITALS: BP 122/58; PULSE 89; TEMP 99
== END 2023-05-25 11:26 | disposition home or self-care (01) | DRG 272 ==
LOC: 2ORMAIN 05:49 → 3SCARD 13:43
PROVIDERS: ADMIT Surgery; ATTEND Surgery
PROC: 04CN3ZZ Extirpation of Matter from Left Popliteal Artery, Percutaneous Approach (ICD-10-PCS; 2023-05-23)
PROC: B41G1ZZ Fluoroscopy of Left Lower Extremity Arteries using Low Osmolar Contrast (ICD-10-PCS; 2023-05-23)
PROC: 4A133B1 Monitoring of Arterial Pressure, Peripheral, Percutaneous Approach (ICD-10-PCS; 2023-05-23)
PROC: 4A133J1 Monitoring of Arterial Pulse, Peripheral, Percutaneous Approach (ICD-10-PCS; 2023-05-23)
PROC: 03HY32Z Insertion of Monitoring Device into Upper Artery, Percutaneous Approach (ICD-10-PCS; 2023-05-23)
PROC: 041L0JL Bypass Left Femoral Artery to Popliteal Artery with Synthetic Substitute, Open Approach (ICD-10-PCS; principal; 2023-05-23 07:30)
DX: E10.51 Type 1 diabetes mellitus with diabetic peripheral angiopathy without gangrene (principal); E03.9 Hypothyroidism, unspecified; Z79.890 Hormone replacement therapy; I50.9 Heart failure, unspecified; I11.0 Hypertensive heart disease with heart failure; F17.210 Nicotine dependence, cigarettes, uncomplicated; E78.5 Hyperlipidemia, unspecified; I70.202 Unspecified atherosclerosis of native arteries of extremities, left leg; I25.10 Atherosclerotic heart disease of native coronary artery without angina pectoris; F32.A Depression, unspecified; M19.90 Unspecified osteoarthritis, unspecified site; I25.2 Old myocardial infarction; Z79.02 Long term (current) use of antithrombotics/antiplatelets; Z79.4 Long term (current) use of insulin; Z79.82 Long term (current) use of aspirin; Z79.899 Other long term (current) drug therapy; Z90.710 Acquired absence of both cervix and uterus; D64.9 Anemia, unspecified; K90.0 Celiac disease; Z95.5 Presence of coronary angioplasty implant and graft; Z96.41 Presence of insulin pump (external) (internal); Z88.0 Allergy status to penicillin; Z88.5 Allergy status to narcotic agent; Z91.048 Other nonmedicinal substance allergy status
CPT/HCPCS: 80048; 80053; 85025

== ENCOUNTER → 2023-10-13 | Outpatient (CLI) | payer MEDICARE | END | disposition home or self-care (01) | LOC: LABPRL 12:00 | PROVIDERS: ATTEND Family Medicine | DX: R79.89 Other specified abnormal findings of blood chemistry (principal) | CPT/HCPCS: 85025 ==